=== PATIENT | male | born 1950 | race Caucasian/White ===

== ENCOUNTER 2017-11-06 20:14 | Emergency (ER) | payer OTHER ==
[~2017-11-06] VITALS: Ht 177.8 cm; Wt 75.0 kg
[~2017-11-06 20:14] MED LIST: BACL20TA PO; CLON.5 PO; CLON1TAB PO; GABA800T PO
[2017-11-06 20:31] VITALS: BP 130/77; PULSE 94; RESP 16; TEMP 98.6; O2SAT 99
--- NOTE | 2017-11-06 21:38 | PD ---
HPI Chief Complaint: Alcohol/Drug Intoxication Time Seen by Provider: 21:35 Travel History International Travel<30 days: No Contact w/Intl Traveler<30days: No Traveled to known affect area: No History of Present Illness HPI Patient 67-year-old male presents emergency department intoxicated under the Novemberi[place] act for evaluation. [place] around him, he was unable to walk and so he was [place] acted and brought here. Patient only complains of chronic right shoulder pain because he has his shoulder. He states he is "in a lot of pain". Denies any injury today, states he did not think he had that much and drink. Mostly he is muttering nonsense at this time but when he focuses he can answer questions. 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 HALDOL (Allergy, Severe, Anaphylaxis, 04/01/16) MISCELLANEOUS (SEE TEXT) (Ingr Allergy) (Allergy, Severe, Y, 05/30/03) FLU SHOTS REACTION UNKNOWN NKA (Allergy, Unknown, 05/31/03) Reported Meds & Prescriptions Reported Meds & Active Scripts Active Active Prescriptions or Reported Medications Unobtainable Review of Systems Except as stated in HPI: all other systems reviewed are Neg Physical Exam Narrative GENERAL: Well-developed, well-nourished, covered in sand. SKIN: Focused skin assessment warm/dry. Covered in sand, no rash nor wound seen on his person. HEAD: Atraumatic. Normocephalic. EYES: Pupils equal and round. No scleral icterus. No injection or drainage. ENT: No nasal bleeding or discharge. Mucous membranes pink and moist. NECK: Trachea midline. No JVD. CARDIOVASCULAR: Regular rate and rhythm. No murmur appreciated. RESPIRATORY: No accessory muscle use. Clear to auscultation. Breath sounds equal bilaterally. GASTROINTESTINAL: Abdomen soft, non-tender, nondistended. Hepatic and splenic margins not palpable. MUSCULOSKELETAL: No obvious deformities. No clubbing. No cyanosis. No edema. Extremities are atraumatic, no tenderness on CT or L-spine, NEUROLOGICAL: Awake and alert. No obvious cranial nerve deficits. Motor grossly within normal limits. Normal speech. PSYCHIATRIC: Appropriate mood and affect; insight and judgment normal. Data Data Last Documented VS Vital Signs Date Time Temp Pulse Resp B/P (MAP) Pulse Ox O2 Delivery O2 Flow Rate FiO2 11/06/17 20:31 98.6 94 16 130/77 (94) 99 MDM Medical Decision Making Medical Screen Exam Complete: Yes Emergency Medical Condition: Yes Differential Diagnosis Alcohol intoxication, substance abuse, alcoholism, traumatic injury highly unlikely Narrative Course Patient room to the emergency department, significantly intoxicated on arrival, he has no medical complaints to warrant workup at this time. Will be allowed to sleep it off in the emergency department until such time as she is clinically sober by provider reassessment. He was discussed with the remaining provider in the emergency department at 01 100 when I left at the end of my day. Diagnosis Primary Impression: Alcohol intoxication Scripts Unable to Obtain Active Prescriptions or Reported Meds Ralph Hurtado MD Nov 06, 2017 21:37
== END 2017-11-07 04:30 | disposition home or self-care (01) ==
LOC: NEDAMB 20:14 → NEPD 11-07 04:30
DX: F10.129 Alcohol abuse with intoxication, unspecified (principal); M25.511 Pain in right shoulder; I10 Essential (primary) hypertension; Z72.0 Tobacco use
CPT/HCPCS: 99282

== ENCOUNTER 2017-11-12 13:51 | Inpatient (IN) | payer OTHER ==
[~2017-11-12] VITALS: Ht 188 cm; Wt 70.8 kg
[2017-11-12 14:16] VITALS: BP 153/90; PULSE 98; RESP 18; TEMP 97.8; O2SAT 99
[2017-11-12] MEDS ORDERED: NICOTINE 21 MG/24 HR PATCH T-DERMAL ONE (16:15)
[2017-11-12 16:54] LABS: AUTOMATED NEUTROPHIL # 7.7 TH/MM3 (1.8-7.7); BASOPHIL # 0.1 TH/MM3 (0-0.2); BASOPHIL % 0.6 % (0.0-2.0); EOSINOPHIL # 0.3 TH/MM3 (0-0.4); EOSINOPHIL % 2.9 % (0.0-4.0); HEMATOCRIT 37.3 % (39.0-51.0); LYMPH % 13.9 % (9.0-44.0); LYMPHOCYTE # 1.4 TH/MM3 (1.0-4.8); MEAN CELL VOLUME 94.1 FL (80.0-100.0); MEAN CORPUSCULAR HEMOGLOBIN 32.9 PG (27.0-34.0); MEAN CORPUSCULAR HGB CONC 34.9 % (32.0-36.0); MEAN PLATELET VOLUME 7.2 FL (7.0-11.0); MONO % 6.1 % (0.0-8.0); MONOCYTE # 0.6 TH/MM3 (0-0.9); NEUT % 76.5 % (16.0-70.0); PLATELET COUNT 329 TH/MM3 (150-450); RED BLOOD COUNT 3.97 MIL/MM3 (4.50-5.90); RED CELL DISTRIBUTION WIDTH 12.8 % (11.6-17.2); WHITE BLOOD COUNT 10.1 TH/MM3 (4.0-11.0)
[2017-11-12] MEDS ORDERED: FOLI1TAB6 (17:01)
[2017-11-12] MEDS ORDERED: CYAN1TAB24 (17:01)
[2017-11-12] MEDS ORDERED: SPIRCAP INH (17:01)
[2017-11-12] MEDS ORDERED: GABA400C5 PO (17:01)
[2017-11-12] MEDS ORDERED: BACL10TA PO (17:01)
[2017-11-12] MEDS ORDERED: CLON1 PO (17:01)
[2017-11-12 17:15] LABS: ALBUMIN 3.6 GM/DL (3.4-5.0); ALT (GPT) 37 U/L (12-78); AST (GOT) 23 U/L (15-37); BLOOD UREA NITROGEN 16 MG/DL (7-18); CALCIUM 8.6 MG/DL (8.5-10.1); CHLORIDE 106 MEQ/L (98-107); GLOMERULAR FILTRATION RATE 67 ML/MIN (>89); GLUCOSE,RANDOM 168 MG/DL (74-106); SODIUM (NA) 140 MEQ/L (136-145)
[2017-11-12] MEDS ORDERED: LORazepam 2 MG TAB PO ONE (17:15)
[2017-11-12] MEDS ORDERED: OLANZapine 10 MG TAB PO ONE (17:15)
[2017-11-12 17:17] LABS: ALKALINE PHOSPHATASE 92 U/L (45-117); TOTAL BILIRUBIN ADULT 0.7 MG/DL (0.2-1.0)
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
[2017-11-12 18:52] VITALS: BP 104/62; PULSE 79; RESP 18; O2SAT 97
[2017-11-12] MEDS ORDERED: MAGNESIUM HYDROXIDE SUSP 30 ML CUP PO PRN (19:15)
[2017-11-12] MEDS ORDERED: ALUMINUM/MAGNESIUM/SIMETH 30 ML CUP PO PRN (19:15)
[2017-11-12] MEDS ORDERED: LORazepam 2 MG/ML VIAL IM PRN ×4 (20:15)
[2017-11-12 20:39] VITALS: BP 157/91; PULSE 68; RESP 18; TEMP 97.1; O2SAT 99
[2017-11-13 06:00] VITALS: BP 149/82; PULSE 85; RESP 16; TEMP 98.1; O2SAT 99
[2017-11-13 08:25] LABS: BICARBONATE 29.4 MEQ/L (21.0-32.0); BLOOD UREA NITROGEN 13 MG/DL (7-18); CHLORIDE 107 MEQ/L (98-107); CREATININE 0.97 MG/DL (0.60-1.30); GLOMERULAR FILTRATION RATE 78 ML/MIN (>89); GLUCOSE,RANDOM 105 MG/DL (74-106); SODIUM (NA) 142 MEQ/L (136-145)
[2017-11-13 08:26] LABS: CHOLESTEROL 93 MG/DL (120-200); TRIGLYCERIDES 52 MG/DL (42-150)
[2017-11-13] MEDS: NICOTINE 21 MG/24 HR PATCH T-DERMAL SCH ×2 (08:48→12:17)
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
[2017-11-13 08:51] LABS: HDL CHOLESTEROL 51.4 MG/DL (40.0-60.0); LDL CHOLESTEROL 31 MG/DL (0-99)
[2017-11-13] MEDS: REMOVE OLD PATCH T-DERMAL SCH (08:51)
[2017-11-13 16:44] VITALS: BP 148/81; PULSE 67; RESP 18; TEMP 97.1; O2SAT 99
[2017-11-13 16:51] LABS: HEMOGLOBIN A1C 4.6 % (4.3-6.0)
[2017-11-13] MEDS: GABAPENTIN 400 MG CAP PO SCH (17:49)
--- NOTE | 2017-11-13 20:17 | EKG ---
Date Performed: 11/13/2017 Time Performed: 08:57:58 PTAGE: 67 years EKG: Sinus rhythm WITH SINUS ARRHYTHMIA SEPTAL MYOCARDIAL INFARCTION , OF INDETERMINATE AGE. When compared to previous tracing, the patient is back in sinus Rhythm. ABNORMAL ECG PREVIOUS TRACING : 10/26/2002 10.15 DOCTOR: Delfina Torres Interpretating Date/Time 11/13/2017 20:17:22
[2017-11-13] MEDS: BACLOFEN 10 MG TAB PO SCH (20:34)
[2017-11-14] MEDS: diphenhydrAMINE HCL 50 MG CAP PO PRN ×2 (01:01→20:14)
[2017-11-14] MEDS: LORazepam 2 MG/ML VIAL IM PRN (04:25)
[2017-11-14 05:58] VITALS: BP 106/62; PULSE 60; RESP 16; TEMP 98.2; O2SAT 98
[2017-11-14 06:06] VITALS: BP 149/73; PULSE 76; RESP 18; TEMP 96.9; O2SAT 100
[2017-11-14] MEDS: TIOTROPIUM BROMIDE 18 MCG INH INH SCH (08:33)
[2017-11-14] MEDS: BACLOFEN 10 MG TAB PO SCH ×2 (08:34→18:00)
[2017-11-14] MEDS: CHOLECALCIFEROL (VIT D3) 1000 UNIT TAB PO SCH (08:34)
[2017-11-14] MEDS: THIAMINE HCL 100 MG TAB PO SCH (08:34)
[2017-11-14] MEDS: GABAPENTIN 400 MG CAP PO SCH ×3 (08:34→18:31)
[2017-11-14] MEDS: NICOTINE 21 MG/24 HR PATCH T-DERMAL SCH (08:34)
[2017-11-14] MEDS: FOLIC ACID 1 MG TAB PO SCH (08:34)
[2017-11-14] MEDS: REMOVE OLD PATCH T-DERMAL SCH (08:35)
--- NOTE | 2017-11-14 09:37 | HHI.PYPN ---
Subjective Chief Complaint: Psychosis Remarks Patient seen and examined with nurse. Chart reviewed. We [facility] but have not received any records at this time. Case discussed with nursing staff. Nurse reports that the patient complained of having a seizure overnight. He is also noted to be easily irritated. Nursing notes patient has skin tears on arms. Case discussed in treatment team. Counselor reports that he has spoken with the patient's sister who notes that the patient is usually high functioning. On my examination today, the patient continues to exhibit garbled, rambling speech. He does tell me that he had a "grand mal seizure last night." I do not see this documented anywhere in nursing notes. He remains irritable and disorganized. Says that he normally takes lithium and Klonopin in addition to current regimen. No side effects from current medications. Requesting bowel regimen. I endeavored to reach out the patient's son/healthcare surrogate Lenny Faye at [phone] to discuss medication changes. I left a generic voicemail requesting a call back. Review of Systems ROS Limitations: Psychotic, Poor Historian Except as stated in HPI: all other systems reviewed are Neg Mental Status Examination Appearance: Disheveled Consciousness: Alert Orientation: Person, Place, Date/Time Motor Activity: Other (no signs of withdrawal noted. No motor abnormalities noted.) Speech: Speech impediment Language: Other (rambling) Fund of Knowledge: Adequate Attention and Concentration: Easily Distracted Memory: Unremarkable (Difficult to assess) Mood: Irritable Affect: Irritable Thought Process & Associations: Disorganized Thought Content: Delusional Hallucination Type: Other (internally preoccupied) Delusion Type: Paranoid Suicidal Ideation: No (unreliable contract for safety) Suicidal Plan: No Suicidal Intention: No Homicidal Ideation: No (unreliable to contract for safety) Homicidal Plan: No Homicidal Intention: No Insight: Poor Judgment: Poor Results Labs Test 11/13/17 18:30 Urine Opiates Screen NEG Urine Barbiturates Screen NEG Urine Amphetamines Screen NEG Urine Benzodiazepines Screen NEG Urine Cocaine Screen NEG Urine Cannabinoids Screen POS Labs reviewed. Free T4 within normal limits. Vitals/IOs Vital Signs Date Time Temp Pulse Resp B/P (MAP) Pulse Ox O2 Delivery O2 Flow Rate FiO2 11/14/17 06:06 96.9 76 18 149/73 (98) 100 11/12/17 18:52 Room Air Assessment & Plan Problem List: (1) Other psychotic disorder not due to a substance or known physiological condition ICD Codes: F28 - Other psychotic disorder not due to a substance or known physiological condition (2) Cannabis abuse ICD Codes: F12.10 - Cannabis abuse, uncomplicated Assessment & Plan Continue gabapentin as ordered. Continue CIWA with Ativan to cover for any benzodiazepine withdrawal. I do think the patient would benefit from an antipsychotic, possibly one with mood stabilizing properties, and I would ask the weekend rounding physician to consider initiating such an agent. I am less sure about resuming lithium as the patient does have a decreased GFR and also TSH abnormality, although free T4 is within normal limits. Consult neurology for reported seizure. EEG and seizure precautions. Consult wound care. Bowel regimen. Continue to monitor on the inpatient unit. Continue other medications and care as ordered. Justification for Cont. Inpt. Impairment in reality construction. Risk for decompensation in less restrictive environment. Discharge Planning Pending psychiatric stabilization. Elian Goode MD Nov 14, 2017 09:37
[2017-11-14] MEDS ORDERED: BISACODYL EC 5 MG TABEC PO PRN (09:45)
[2017-11-14] MEDS: DOCUSATE SODIUM 100 MG CAP PO SCH ×2 (10:46→20:14)
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
--- NOTE | 2017-11-14 15:02 | MB ---
cc: JEREMY VALDEZ M.D. DATE OF CONSULTATION: 11/14/2017 REASON FOR CONSULTATION: Sukhdeep Faye he is 67-year-old seen in neurological consultation. He is in the psychiatric unit under a [facility]. Consult was called as the patient has told the staff that he had a seizure last night. Nobody witnessed the seizure as far as I can gather. I spoke to the RN and we went in the room and examined the patient. He says he was moving his head and arms and he remembers the seizure and when I asked him how long it lasted he has had 4 hours. There was no suggestions of incontinence or any tongue injury. It is very difficult to gather more history on him. He was admitted a couple of days ago and through [facility] when he was apparently shooting a gun in the air and had some argument with the police. He does have a psychiatric history and a history of PTSD. He admits seizures in the past from agent orange intoxication when he was in the war. Appears that he lives alone and handles his medications. He MEDICATIONS: Reportedly takes of baclofen clonazepam 1 mg twice a day, Gabapentin 400 mg three times a day Spiriva B12. SOCIAL HISTORY: He does not drink. He does not drive. PHYSICAL EXAMINATION: Exam showed the patient to be vague nonspecific with a difficult to comprehend the speech. He this appears to be his baseline. He is oriented and provided some basic information accurately, knows his medications. He ambulates independently. He was able to walk on toes and has some difficulty walking on heels. Hygiene seems to be poor. Reflexes were present but diminished at the elbows and knees, trace or absent at the ankles. Plantar responses were flexor. LABORATORY FINDINGS: Serum WBC 10.1, hemoglobin 13.0, platelet 329. Chemistry is mostly unremarkable. <<3:18>> level 532. TSH low basic chemistry is normal except that on admission glucose was 168 and yesterday 105. Toxicology was positive for cannabinoids. ASSESSMENT Self-reported for grand mal seizure last evening, lasting for hours. Evidently this is not compatible with a true grand mal seizure considering the entire situation. Very vague history of seen in the past which he described as being related to agent orange. It was very difficult to list any more reliable history. He has an EEG pending. Unless the EEG is showing some significant epileptiform discharges, I would not recommend any of other seizure on assessment for the time being. Continue with gabapentin 400 mg three times a day which has anticonvulsant properties and continue the psychiatric care. Evidently if we document the seizure while he is in the hospital then we will need to be called back to reassess the situation. Thank you for asking us to assist in his care. MD ADELAIDE Hernandez/pamela /10:59 AM /2:25 PM
[2017-11-14] MEDS ORDERED: LITHIUM PO (16:12)
[2017-11-14] MEDS ORDERED: TERA2CAP3 PO (16:12)
[2017-11-14] MEDS ORDERED: MELO15TA20 PO (16:12)
[2017-11-14] MEDS ORDERED: FLUT50SP EACH NARE (16:12)
[2017-11-14] MEDS ORDERED: ASPI81CH7 CHEW (16:12)
[2017-11-14] MEDS ORDERED: CLON1TAB PO (16:12)
[2017-11-14] MEDS ORDERED: SPIRCAP INH (16:12)
[2017-11-14] MEDS ORDERED: GABA400C5 PO (16:12)
[2017-11-14] MEDS ORDERED: BACL10TA PO (16:12)
--- NOTE | 2017-11-14 17:40 | PD.WCN.NOT ---
Wound Consult Description: Received consult for wound management of skin tears to Bilateral arms from Doctor Rupa Communicated with: EDILSON [facility] psych unit Recommendation: 1.Please cleanse skin tears to BUE with wound cleanser and pat dry. 2.Apply non stick dressing over open wounds to LUE and secure with rolled gauze and tape. Change dressing every 3 days or PRN if saturated or dislodged. 3. Apply Xeroform just over open wounds to R elbow and cover with dry 4x4 gauze secured with rolled gauze, tape and stockinette. Change every other day or PRN if saturated or dislodged. Additional Information: Patient seen on 2700 psych unit for wound management of skin tears to bilateral arms. Removed bordered gauze in place to BUE to reveal two open skion tears to L forearm and two open skin tears to R elbow. Wounds appear shallow and partial thickness with no active drainage from L forearm and minimal serous drainage from R elbow wounds that is without odor. All open wounds were cleansed with wound cleanser. Applied non stick dressing (telfa) over open skin tears to L forearm. Secured dressing with rolled gauze and tape. Applied single layer Xeroform gauze just over open skin tears on R elbow and covered with dry 4x4 gauze secured with rolled gauze tape and additionally secured with stockinette. Teetee Mejia [facility] Nov 14, 2017 17:40
[2017-11-14 18:16] VITALS: BP 162/76; PULSE 73; RESP 19; TEMP 97.3; O2SAT 100
[2017-11-14] MEDS: FLUTICASONE PROPIONATE 50 MCG/ACT 16 GM NASAL SPRAY EACH NARE SCH (20:25)
[2017-11-14] MEDS: TERAZOSIN HCL 1 MG CAP PO SCH (20:26)
[2017-11-14] MEDS: LORazepam 1 MG TAB PO PRN (20:43)
[2017-11-14] MEDS: ACETAMINOPHEN 325 MG TAB PO PRN (20:47)
--- NOTE | 2017-11-14 21:18 | MG ---
cc: JEREMY MUÑOZ MD Lab No: Date: 11/14/17 Age: 67 Sex: M Race: REFERRING PHYSICIAN Dr. Greenberg An EEG was obtained on this 67-year-old patient with a history of seizures. The patient is awake and asleep. This EEG shows a mixture of awake and asleep recording. There is beta activity diffusely during sleep. There are theta and some delta rhythms also during sleep. The background appears to be reactive when the patient awakens briefly. Later on, there are deeper stages of sleep and photic stimulation disclosed some awakening. INTERPRETATION Probably normal predominantly asleep EEG for the patient's age. No epileptiform features present. Jeremy Muñoz MD [facility] /8:25 PM /9:11 PM
[2017-11-15 06:09] VITALS: BP 164/79; PULSE 80; RESP 16; TEMP 97.9; O2SAT 100
[2017-11-15] MEDS: MELOXICAM 15 MG TAB PO SCH (08:13)
[2017-11-15] MEDS: FOLIC ACID 1 MG TAB PO SCH (08:13)
[2017-11-15] MEDS: CHOLECALCIFEROL (VIT D3) 1000 UNIT TAB PO SCH (08:13)
[2017-11-15] MEDS: THIAMINE HCL 100 MG TAB PO SCH (08:13)
[2017-11-15] MEDS: ASPIRIN 81 MG CHEW TAB CHEW SCH (08:13)
[2017-11-15] MEDS: GABAPENTIN 400 MG CAP PO SCH ×3 (08:13→17:48)
[2017-11-15] MEDS: DOCUSATE SODIUM 100 MG CAP PO SCH ×2 (08:14→21:00)
[2017-11-15] MEDS: TIOTROPIUM BROMIDE 18 MCG INH INH SCH (08:14)
[2017-11-15] MEDS: NICOTINE 21 MG/24 HR PATCH T-DERMAL SCH (08:14)
[2017-11-15] MEDS: REMOVE OLD PATCH T-DERMAL SCH (08:16)
[2017-11-15] MEDS: BACLOFEN 10 MG TAB PO SCH ×3 (08:44→17:48)
--- NOTE | 2017-11-15 13:38 | HHI.PYPN ---
Subjective Chief Complaint: Psychosis Remarks Pt seen and discussed with staff. He has been bizarre and disorganized on the unit and frequently makes delusional statements that people are out to get him. He has been cooperative with medications. He is irritable but has been participating in unit activities. Mental Status Examination Appearance: Disheveled Consciousness: Alert Orientation: Person, Place, Date/Time Motor Activity: Other (no signs of withdrawal noted. No motor abnormalities noted.) Speech: Speech impediment Language: Other (rambling) Fund of Knowledge: Adequate Attention and Concentration: Easily Distracted Memory: Unremarkable (Difficult to assess) Mood: Irritable Affect: Irritable Thought Process & Associations: Disorganized Thought Content: Delusional Hallucination Type: Other (internally preoccupied) Delusion Type: Paranoid Suicidal Ideation: No (unreliable contract for safety) Suicidal Plan: No Suicidal Intention: No Homicidal Ideation: No (unreliable to contract for safety) Homicidal Plan: No Homicidal Intention: No Insight: Poor Judgment: Poor Results Vitals/IOs Vital Signs Date Time Temp Pulse Resp B/P (MAP) Pulse Ox O2 Delivery O2 Flow Rate FiO2 11/15/17 06:09 97.9 80 16 164/79 (107) 100 11/12/17 18:52 Room Air Assessment & Plan Problem List: (1) Other psychotic disorder not due to a substance or known physiological condition ICD Codes: F28 - Other psychotic disorder not due to a substance or known physiological condition (2) Cannabis abuse ICD Codes: F12.10 - Cannabis abuse, uncomplicated Assessment & Plan continue current tx plan. Estimated LOS: days Justification for Cont. Inpt. psychosis Carmen Sarah MD Nov 15, 2017 13:38
[2017-11-15 18:09] VITALS: BP 166/77; PULSE 84; RESP 19; TEMP 97.8; O2SAT 84
[2017-11-15] MEDS: TERAZOSIN HCL 1 MG CAP PO SCH (21:00)
[2017-11-15] MEDS: FLUTICASONE PROPIONATE 50 MCG/ACT 16 GM NASAL SPRAY EACH NARE SCH (21:00)
[2017-11-16] MEDS: diphenhydrAMINE HCL 50 MG CAP PO PRN ×2 (02:00→20:32)
[2017-11-16] MEDS: LORazepam 1 MG TAB PO PRN (03:09)
[2017-11-16 06:16] VITALS: BP 143/93; PULSE 97; RESP 18; TEMP 98.7; O2SAT 99
[2017-11-16] MEDS: CHOLECALCIFEROL (VIT D3) 1000 UNIT TAB PO SCH (08:13)
[2017-11-16] MEDS: THIAMINE HCL 100 MG TAB PO SCH (08:13)
[2017-11-16] MEDS: FOLIC ACID 1 MG TAB PO SCH (08:13)
[2017-11-16] MEDS: GABAPENTIN 400 MG CAP PO SCH ×3 (08:13→18:00)
[2017-11-16] MEDS: BACLOFEN 10 MG TAB PO SCH ×3 (08:13→18:00)
[2017-11-16] MEDS: TIOTROPIUM BROMIDE 18 MCG INH INH SCH (08:14)
[2017-11-16] MEDS: MELOXICAM 15 MG TAB PO SCH (08:14)
[2017-11-16] MEDS: ASPIRIN 81 MG CHEW TAB CHEW SCH (08:14)
[2017-11-16] MEDS: REMOVE OLD PATCH T-DERMAL SCH (08:25)
[2017-11-16] MEDS: NICOTINE 21 MG/24 HR PATCH T-DERMAL SCH (08:25)
--- NOTE | 2017-11-16 10:39 | HHI.PYPN ---
Subjective Chief Complaint: Psychosis Remarks Pt seen and discussed with staff. He has been compliant with medications. No alcohol withdrawal symptoms. He became angry with peer but was able to be redirected. He participated in a few unit activities. Mental Status Examination Appearance: Disheveled Consciousness: Alert Orientation: Person, Place, Date/Time Motor Activity: Other (no signs of withdrawal noted. No motor abnormalities noted.) Speech: Speech impediment Language: Other (rambling) Fund of Knowledge: Adequate Attention and Concentration: Easily Distracted Memory: Unremarkable (Difficult to assess) Mood: Irritable Affect: Irritable Thought Process & Associations: Disorganized Thought Content: Delusional Hallucination Type: Other (internally preoccupied) Delusion Type: Paranoid Suicidal Ideation: No (unreliable contract for safety) Suicidal Plan: No Suicidal Intention: No Homicidal Ideation: No (unreliable to contract for safety) Homicidal Plan: No Homicidal Intention: No Insight: Poor Judgment: Poor Results Vitals/IOs Vital Signs Date Time Temp Pulse Resp B/P (MAP) Pulse Ox O2 Delivery O2 Flow Rate FiO2 11/16/17 06:16 98.7 97 18 143/93 (110) 99 11/12/17 18:52 Room Air Assessment & Plan Problem List: (1) Other psychotic disorder not due to a substance or known physiological condition ICD Codes: F28 - Other psychotic disorder not due to a substance or known physiological condition (2) Cannabis abuse ICD Codes: F12.10 - Cannabis abuse, uncomplicated Assessment & Plan Continue current tx plan. Estimated LOS: days Justification for Cont. Inpt. psychosis Carmen Sarah MD Nov 16, 2017 10:39
--- NOTE | 2017-11-16 12:32 | PD.CONS ---
HPI Service 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 Patient was [place] [facility] by police after apparently he was shooting at the air [place] his property. Patient has a history of PTSD and per records bipolar disorder. Patient states that he has not drank alcohol or any IV drug abuse but he does have a history of alcohol abuse in the past. Apparently patient had to be tased by police secondary to patient being erratic. The patient is quite psychotic on examination. History is limited because of patient's mental status. No other medical issues. No signs of infection. Patient states compliance with medications but unclear. No urinary or bowel movement issues. Review of Systems ROS Limitations: Clinical Condition, Psychotic Except as stated in HPI: all other systems reviewed are Neg Past Family Social History Allergies: Coded Allergies: haloperidol (Unverified Allergy, Severe, Twitching, 11/06/17) REACTION NOT GIVEN Uncoded Allergies: FLU SHOTS,? HALDOL (Allergy, Severe, Anaphylaxis, 04/01/16) MISCELLANEOUS (SEE TEXT) (Ingr Allergy) (Allergy, Severe, Y, 05/30/03) FLU SHOTS REACTION UNKNOWN NKA (Allergy, Unknown, 05/31/03) Past Medical History psychosis Past Surgical History umbilical hernia repair right knee surgery Family History Says father doesn't know medical problems Says mother healthy at more than 100 years Social History EtOH 8 beers daily Marijuana occasional Tobacco use 1 PPD Physical Exam Vital Signs Vital Signs Date Time Temp Pulse Resp B/P (MAP) Pulse Ox O2 Delivery O2 Flow Rate FiO2 11/16/17 06:16 98.7 97 18 143/93 (110) 99 11/15/17 18:09 97.8 84 19 166/77 (106) 84 Physical Exam GENERAL: This is a well-nourished, well-developed patient, in no apparent distress. SKIN: No rashes, ecchymoses or lesions. Cool and dry. HEAD: Atraumatic. Normocephalic. No temporal or scalp tenderness. EYES: Pupils equal round and reactive. Extraocular motions intact. No scleral icterus. No injection or drainage. ENT: Nose without bleeding, purulent drainage or septal hematoma. Throat without erythema, tonsillar hypertrophy or exudate. Uvula midline. Airway patent. NECK: Trachea midline. No JVD or lymphadenopathy. Supple, nontender, no meningeal signs. CARDIOVASCULAR: Regular rate and rhythm without murmurs, gallops, or rubs. RESPIRATORY: Clear to auscultation. Breath sounds equal bilaterally. No wheezes , rales, or rhonchi. GASTROINTESTINAL: Abdomen soft, non-tender, nondistended. No hepato-splenomegaly , or palpable masses. No guarding. MUSCULOSKELETAL: Extremities without clubbing, cyanosis, or edema. No joint tenderness, effusion, or edema noted. No calf tenderness. Negative Homans sign bilaterally. NEUROLOGICAL: Awake and alert. Cranial nerves grossly intact. Motor and sensory grossly within normal limits. Ambulates without any problems. Normal speech. Psychotic. Tremors of his head. Result Diagram: 11/12/17 1640 11/13/17 0746 Assessment and Plan Assessment and Plan Psychosis management per psych Diarrhea: check for C diff, stool studies, add lactinex Continue home meds as appropriate DVT ppx ambulating Discussed Condition With patient, nurse Laecy Antonio MD Nov 16, 2017 12:32
[2017-11-16 13:26] LABS: AUTOMATED NEUTROPHIL # 4.2 TH/MM3 (1.8-7.7); BASOPHIL % 0.6 % (0.0-2.0); EOSINOPHIL # 0.2 TH/MM3 (0-0.4); EOSINOPHIL % 3.1 % (0.0-4.0); HEMATOCRIT 38.1 % (39.0-51.0); HEMOGLOBIN 13.2 GM/DL (13.0-17.0); LYMPH % 24.8 % (9.0-44.0); LYMPHOCYTE # 1.7 TH/MM3 (1.0-4.8); MEAN CELL VOLUME 94.8 FL (80.0-100.0); MEAN CORPUSCULAR HGB CONC 34.8 % (32.0-36.0); MEAN PLATELET VOLUME 7.4 FL (7.0-11.0); MONO % 8.6 % (0.0-8.0); MONOCYTE # 0.6 TH/MM3 (0-0.9); NEUT % 62.9 % (16.0-70.0); PLATELET COUNT 282 TH/MM3 (150-450); RED BLOOD COUNT 4.02 MIL/MM3 (4.50-5.90); RED CELL DISTRIBUTION WIDTH 13.4 % (11.6-17.2); WHITE BLOOD COUNT 6.7 TH/MM3 (4.0-11.0)
[2017-11-16 13:42] LABS: BICARBONATE 34.3 MEQ/L (21.0-32.0); CALCIUM 9.6 MG/DL (8.5-10.1); CREATININE 1.26 MG/DL (0.60-1.30)
[2017-11-16 16:30] VITALS: BP 119/72; PULSE 92; RESP 18; TEMP 98; O2SAT 99
[2017-11-16] MEDS: FLUTICASONE PROPIONATE 50 MCG/ACT 16 GM NASAL SPRAY EACH NARE SCH (20:31)
[2017-11-16] MEDS: TERAZOSIN HCL 1 MG CAP PO SCH (20:32)
[2017-11-17] MEDS: LORazepam 1 MG TAB PO PRN ×3 (00:12→20:47)
[2017-11-17 06:14] VITALS: BP 155/74; PULSE 90; RESP 16; TEMP 97.3; O2SAT 97
[2017-11-17] MEDS: THIAMINE HCL 100 MG TAB PO SCH (09:00)
[2017-11-17] MEDS: TIOTROPIUM BROMIDE 18 MCG INH INH SCH (09:00)
[2017-11-17] MEDS: REMOVE OLD PATCH T-DERMAL SCH (09:00)
[2017-11-17] MEDS: ASPIRIN 81 MG CHEW TAB CHEW SCH (09:19)
[2017-11-17] MEDS: GABAPENTIN 400 MG CAP PO SCH ×3 (09:19→17:54)
[2017-11-17] MEDS: FOLIC ACID 1 MG TAB PO SCH (09:20)
[2017-11-17] MEDS: NICOTINE 21 MG/24 HR PATCH T-DERMAL SCH (09:20)
[2017-11-17] MEDS: CHOLECALCIFEROL (VIT D3) 1000 UNIT TAB PO SCH (09:20)
[2017-11-17] MEDS: MELOXICAM 15 MG TAB PO SCH (09:20)
[2017-11-17] MEDS: BACLOFEN 10 MG TAB PO SCH ×3 (09:20→17:54)
--- NOTE | 2017-11-17 11:53 | HHI.PYPN ---
Subjective Chief Complaint: Psychosis Remarks Patient seen and examined with nurse. Chart reviewed. Case discussed with nursing staff. On my exam, patient is very irritable. He becomes particularly agitated when discussing medications, yelling out and swinging his arms in a threatening manner. Thought process is disorganized. Denies side effects from medications. No physical complaints. Again endeavored to reach son for med consents. Left VM requesting a call back. Review of Systems ROS Limitations: Psychotic, Poor Historian Except as stated in HPI: all other systems reviewed are Neg Mental Status Examination Appearance: Disheveled Consciousness: Alert Orientation: Person, Place, Date/Time Motor Activity: Other (no abnormal motor movements noted. No signs of any withdrawal noted.) Speech: Speech impediment Language: Other (rambling) Fund of Knowledge: Adequate Attention and Concentration: Easily Distracted Memory: Unremarkable (Difficult to assess) Mood: Angry, Irritable Affect: Irritable Thought Process & Associations: Disorganized Thought Content: Delusional Hallucination Type: Other (remains internally stimulated) Delusion Type: Paranoid Suicidal Ideation: No (unreliable contract for safety) Suicidal Plan: No Suicidal Intention: No Homicidal Ideation: No (unreliable to contract for safety) Homicidal Plan: No Homicidal Intention: No Insight: Poor Judgment: Poor Results Labs Test 11/16/17 13:00 White Blood Count 6.7 TH/MM3 Red Blood Count 4.02 MIL/MM3 Hemoglobin 13.2 GM/DL Hematocrit 38.1 % Mean Corpuscular Volume 94.8 FL Mean Corpuscular Hemoglobin 33.0 PG Mean Corpuscular Hemoglobin Concent 34.8 % Red Cell Distribution Width 13.4 % Platelet Count 282 TH/MM3 Mean Platelet Volume 7.4 FL Neutrophils (%) (Auto) 62.9 % Lymphocytes (%) (Auto) 24.8 % Monocytes (%) (Auto) 8.6 % Eosinophils (%) (Auto) 3.1 % Basophils (%) (Auto) 0.6 % Neutrophils # (Auto) 4.2 TH/MM3 Lymphocytes # (Auto) 1.7 TH/MM3 Monocytes # (Auto) 0.6 TH/MM3 Eosinophils # (Auto) 0.2 TH/MM3 Basophils # (Auto) 0.0 TH/MM3 CBC Comment DIFF FINAL Differential Comment Blood Urea Nitrogen 21 MG/DL Creatinine 1.26 MG/DL Random Glucose 93 MG/DL Calcium Level 9.6 MG/DL Sodium Level 141 MEQ/L Potassium Level 4.1 MEQ/L Chloride Level 104 MEQ/L Carbon Dioxide Level 34.3 MEQ/L Anion Gap 3 MEQ/L Estimat Glomerular Filtration Rate 57 ML/MIN Labs reviewed. GFR 57 noted. Extended urine toxicology pending still. Vitals/IOs Vital Signs Date Time Temp Pulse Resp B/P (MAP) Pulse Ox O2 Delivery O2 Flow Rate FiO2 11/17/17 06:14 97.3 90 16 155/74 (101) 97 Assessment & Plan Problem List: (1) Other psychotic disorder not due to a substance or known physiological condition ICD Codes: F28 - Other psychotic disorder not due to a substance or known physiological condition (2) Cannabis abuse ICD Codes: F12.10 - Cannabis abuse, uncomplicated Assessment & Plan Patient would benefit from antipsychotic. QTc wnl. When son calls back, we will discuss pharmacotherapeutic options. Encourage fluids and check BMP in the morning. Hospitalist input noted and appreciated. Continue to monitor on high acuity unit. Continue other medications and care as ordered. Justification for Cont. Inpt. Impairment in reality construction. Medication changes anticipated. High risk for decompensation in less restrictive environment. Discharge Planning Pending psychiatric stabilization Request HC Surrog/Guard Advoc?: Yes Elian Goode MD Nov 17, 2017 11:53
[2017-11-17] MEDS ORDERED: LITH300T PO (12:18)
[2017-11-17 17:45] VITALS: BP 125/72; PULSE 100; RESP 16; TEMP 98.7; O2SAT 98
[2017-11-17] MEDS: ARIPiprazole 15 MG TAB PO SCH (17:54)
[2017-11-17] MEDS: TERAZOSIN HCL 1 MG CAP PO SCH (20:47)
[2017-11-17] MEDS: FLUTICASONE PROPIONATE 50 MCG/ACT 16 GM NASAL SPRAY EACH NARE SCH (21:00)
[2017-11-18 06:05] VITALS: BP 157/67; PULSE 77; RESP 16; TEMP 98.1; O2SAT 99
[2017-11-18 07:05] LABS: BICARBONATE 31.2 MEQ/L (21.0-32.0); CREATININE 1.18 MG/DL (0.60-1.30)
[2017-11-18] MEDS: REMOVE OLD PATCH T-DERMAL SCH (09:00)
[2017-11-18] MEDS: ARIPiprazole 15 MG TAB PO SCH (09:16)
[2017-11-18] MEDS: THIAMINE HCL 100 MG TAB PO SCH (09:16)
[2017-11-18] MEDS: BACLOFEN 10 MG TAB PO SCH ×3 (09:16→17:51)
[2017-11-18] MEDS: TIOTROPIUM BROMIDE 18 MCG INH INH SCH (09:16)
[2017-11-18] MEDS: ASPIRIN 81 MG CHEW TAB CHEW SCH (09:16)
[2017-11-18] MEDS: FOLIC ACID 1 MG TAB PO SCH (09:17)
[2017-11-18] MEDS: GABAPENTIN 400 MG CAP PO SCH ×3 (09:17→17:51)
[2017-11-18] MEDS: CHOLECALCIFEROL (VIT D3) 1000 UNIT TAB PO SCH (09:17)
[2017-11-18] MEDS: MELOXICAM 15 MG TAB PO SCH (09:17)
[2017-11-18] MEDS: NICOTINE 21 MG/24 HR PATCH T-DERMAL SCH (09:18)
--- NOTE | 2017-11-18 09:32 | HHI.PYPN ---
Subjective Chief Complaint: Psychosis Remarks Patient seen and examined with nurse. Chart reviewed. Case discussed with nursing staff who notes patient was arguing with himself in the shower. Case discussed in treatment team. Recreation therapist notes that the patient is unable to tolerate groups. On my examination today, the patient's speech is a little clearer and his thought process somewhat more linear. He is less irritable. He continues to make tangential comments at times, for example asking me about my "id and iliac being out of alignment." No side effects from medications. No physical complaints. Review of Systems ROS Limitations: Psychotic, Poor Historian Except as stated in HPI: all other systems reviewed are Neg Mental Status Examination Appearance: Disheveled (grooming somewhat improved today) Consciousness: Alert Orientation: Person, Place, Date/Time Motor Activity: Other (tongue darting movements persist but the patient is edentulous. No other motor abnormalities noted.) Speech: Speech impediment Language: Other (remains rambling but a little more coherent today) Fund of Knowledge: Adequate Attention and Concentration: Easily Distracted Memory: Unremarkable (Difficult to assess) Mood: Other (considerably less irritable today) Affect: Euthymic Thought Process & Associations: Tangential Thought Content: Delusional Hallucination Type: Other (remains internally stimulated) Delusion Type: Paranoid Suicidal Ideation: No Homicidal Ideation: No Insight: Poor Judgment: Poor Results Labs Test 11/18/17 06:21 Blood Urea Nitrogen 23 MG/DL Creatinine 1.18 MG/DL Random Glucose 119 MG/DL Calcium Level 10.0 MG/DL Sodium Level 141 MEQ/L Potassium Level 4.3 MEQ/L Chloride Level 106 MEQ/L Carbon Dioxide Level 31.2 MEQ/L Anion Gap 4 MEQ/L Estimat Glomerular Filtration Rate 62 ML/MIN Labs reviewed. GFR improved versus previous reading and within range going back to 2014. Vitals/IOs Vital Signs Date Time Temp Pulse Resp B/P (MAP) Pulse Ox O2 Delivery O2 Flow Rate FiO2 11/18/17 06:05 98.1 77 16 157/67 (97) 99 Assessment & Plan Problem List: (1) Other psychotic disorder not due to a substance or known physiological condition ICD Codes: F28 - Other psychotic disorder not due to a substance or known physiological condition (2) Cannabis abuse ICD Codes: F12.10 - Cannabis abuse, uncomplicated Assessment & Plan Titrate Abilify to 20 mg daily to target psychotic symptoms. To consider long- acting injectable Abilify. Continue to monitor on an inpatient unit. Continue other medications and care as ordered. Justification for Cont. Inpt. Medication changes. Impairment in reality construction. Risk for decompensation in less restrictive environment. Discharge Planning Pending psychiatric stabilization. Request HC Surrog/Guard Advoc?: Yes Elian Goode MD Nov 18, 2017 09:32
[2017-11-18] MEDS: LORazepam 1 MG TAB PO PRN ×2 (13:12→20:22)
--- NOTE | 2017-11-18 17:25 | HHI.PR ---
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 Patient was [place] acted by police after apparently he was shooting [place] the air [place]. Patient has a history of PTSD and per records bipolar disorder. Patient states that he has not drank alcohol or any IV drug abuse but he does have a history of alcohol abuse in the past. Apparently patient had to be tased by police secondary to patient being erratic. The patient is quite psychotic on examination. History is limited because of patient's mental status. No other medical issues. No signs of infection. Patient states compliance with medications but unclear. No urinary or bowel movement issues. 11-18 WAS REFUSING TREATMENT PRIOR IN ADMISSION PATIENT IS NOW TAKING HIS MEDICATIONS DW PATIENT AND RN Objective Vitals Vital Signs Date Time Temp Pulse Resp B/P (MAP) Pulse Ox O2 Delivery O2 Flow Rate FiO2 11/18/17 06:05 98.1 77 16 157/67 (97) 99 11/17/17 17:45 98.7 100 16 125/72 (89) 98 Result Diagram: 11/16/17 1300 11/18/17 0621 Other Results Laboratory Tests Test 11/16/17 13:00 11/18/17 06:21 White Blood Count 6.7 TH/MM3 Red Blood Count 4.02 MIL/MM3 Hemoglobin 13.2 GM/DL Hematocrit 38.1 % Mean Corpuscular Volume 94.8 FL Mean Corpuscular Hemoglobin 33.0 PG Mean Corpuscular Hemoglobin Concent 34.8 % Red Cell Distribution Width 13.4 % Platelet Count 282 TH/MM3 Mean Platelet Volume 7.4 FL Neutrophils (%) (Auto) 62.9 % Lymphocytes (%) (Auto) 24.8 % Monocytes (%) (Auto) 8.6 % Eosinophils (%) (Auto) 3.1 % Basophils (%) (Auto) 0.6 % Neutrophils # (Auto) 4.2 TH/MM3 Lymphocytes # (Auto) 1.7 TH/MM3 Monocytes # (Auto) 0.6 TH/MM3 Eosinophils # (Auto) 0.2 TH/MM3 Basophils # (Auto) 0.0 TH/MM3 CBC Comment DIFF FINAL Differential Comment Blood Urea Nitrogen 21 MG/DL 23 MG/DL Creatinine 1.26 MG/DL 1.18 MG/DL Random Glucose 93 MG/DL 119 MG/DL Calcium Level 9.6 MG/DL 10.0 MG/DL Sodium Level 141 MEQ/L 141 MEQ/L Potassium Level 4.1 MEQ/L 4.3 MEQ/L Chloride Level 104 MEQ/L 106 MEQ/L Carbon Dioxide Level 34.3 MEQ/L 31.2 MEQ/L Anion Gap 3 MEQ/L 4 MEQ/L Estimat Glomerular Filtration Rate 57 ML/MIN 62 ML/MIN Objective Remarks GENERAL: AWAKE AND ALERT TALKATIVE AND COOPERATIVE NOW SKIN: Warm and dry. HEAD: Atraumatic. Normocephalic. EYES: Pupils equal and round. No scleral icterus. No injection or drainage. ENT: No nasal bleeding or discharge. Mucous membranes pink and moist. NECK: Trachea midline. No JVD. CARDIOVASCULAR: Regular rate and rhythm. S1,S2 NO S3 OR S4 RESPIRATORY: No accessory muscle use. Clear to auscultation. Breath sounds equal bilaterally. GASTROINTESTINAL: Abdomen soft, non-tender, nondistended. Hepatic and splenic margins not palpable. MUSCULOSKELETAL: Extremities without clubbing, cyanosis, or edema. No obvious deformities. NEUROLOGICAL: Awake and alert. No obvious cranial nerve deficits. Motor grossly within normal limits. Five out of 5 muscle strength in the arms and legs. Normal speech. PSYCHIATRIC: INAppropriate mood and affect; insight and judgment ABnormal. Medications and IVs Current Medications Nicotine (Habitrol 21 Mg Patch.24 Hr) 1 patch ONCE ONCE T-DERMAL Last administered on 11/12/17at 16:25; Start 11/12/17 at 16:15; Stop 11/12/17 at 16:16 ; Status DC Lorazepam (Ativan) 2 mg NOW ONCE PO Last administered on 11/12/17at 17:15; Start 11/12/17 at 17:15; Stop 11/12/17 at 17:16; Status DC Olanzapine (ZyPREXA) 10 mg NOW ONCE PO Last administered on 11/12/17at 17:15; Start 11/12/17 at 17:15; Stop 11/12/17 at 17:16; Status DC Acetaminophen (Tylenol) 650 mg Q4H PRN PO Pain 1-5 or Temp >101F Last administered on 11/14/17at 20:47; Start 11/12/17 at 19:15 Magnesium Hydroxide (Milk Of Magnesia Liq) 30 ml DAILY PRN PO CONSTIPATION; Start 11/12/17 at 19:15 Al Hydrox/Mg Hydrox/Simethicone (Mag-Al Plus Susp Liq) 30 ml Q6H PRN PO DYSPEPSIA; Start 11/12/17 at 19:15 Nicotine (Habitrol 21 Mg Patch.24 Hr) 1 patch DAILY T-DERMAL Last administered on 11/18/17at 09:18; Start 11/13/17 at 09:00 Miscellaneous Information 1 DAILY T-DERMAL Last administered on 11/18/17at 09:00 ; Start 11/13/17 at 09:00 Lorazepam (Ativan) 1 mg Q4H PRN PO CIWA 8-10 Last administered on 11/17/17at 20: 47; Start 11/12/17 at 20:15 Lorazepam (Ativan Inj) 1 mg Q4H PRN IM CIWA 8-10; Start 11/12/17 at 20:15 Lorazepam (Ativan) 2 mg Q2H PRN PO CIWA 11-14; Start 11/12/17 at 20:15 Lorazepam (Ativan Inj) 2 mg Q2H PRN IM CIWA 11-14; Start 11/12/17 at 20:15 Lorazepam (Ativan Inj) 2 mg Q1H PRN IM CIWA 15-20; Start 11/12/17 at 20:15 Lorazepam (Ativan Inj) 2 mg Q15M PRN IM CIWA > 20; Start 11/12/17 at 20:15 Thiamine HCl (Vitamin B1) 100 mg DAILY PO Last administered on 11/18/17at 09:16 ; Start 11/14/17 at 09:00 Folic Acid (Folate) 1 mg DAILY PO Last administered on 11/18/17at 09:17; Start 11/14/17 at 09:00 Cholecalciferol (Vitamin D3) 1,000 units DAILY PO Last administered on 09:17; Start 11/14/17 at 09:00 Baclofen (Lioresal) 10 mg BID PO Last administered on 11/14/17at 08:34; Start at 21:00; Stop 11/14/17 at 17:15; Status DC Gabapentin (Neurontin) 400 mg TID PO Last administered on 11/18/17at 13:12; Start 11/13/17 at 18:00 Tiotropium [place] (Spiriva Inh) 18 mcg DAILY INH Last administered on 09:16; Start 11/14/17 at 09:00 Lorazepam (Ativan) 1 mg Q6H PRN PO ANXIETY Last administered on 11/18/17 13:12 ; Start 11/13/17 at 16:30 Lorazepam (Ativan Inj) 1 mg Q6H PRN IM ANXIETY Last administered on 11/14/17 04:25; Start 11/13/17 at 16:30 Diphenhydramine HCl (Benadryl) 50 mg HS PRN PO INSOMNIA Last administered on 20:32; Start 11/13/17 at 16:30 Docusate Sodium (Colace) 100 mg BID PO Last administered on 11/14/17 20:14; Start 11/14/17 at 11:00; Status Future Hold Bisacodyl (Dulcolax Ec) 10 mg DAILY PRN PO NO BM IN 24 HOURS Last administered on 11/14/17 10:46; Start 11/14/17 at 09:45; Status Future Hold Aspirin (Aspirin Chew) 81 mg DAILY CHEW Last administered on 11/18/17 09:16; Start 11/15/17 at 09:00 Fluticasone Propionate (Flonase Ron Spr) 1 spray HS EACH NARE Last administered on 11/17/17 21:00; Start 11/14/17 at 21:00 Meloxicam (Mobic) 15 mg DAILY PO Last administered on 11/18/17 09:17; Start at 09:00 Terazosin HCl (Hytrin) 2 mg HS PO Last administered on 11/17/17 20:47; Start 11/14/17 at 21:00 Baclofen (Lioresal) 10 mg TID PO Last administered on 11/18/17 13:12; Start at 18:00 Aripiprazole (Abilify) 15 mg DAILY PO Last administered on 11/18/17 09:16; Start 11/17/17 at 18:00; Stop 11/18/17 at 12:39; Status DC Aripiprazole (Abilify) 20 mg DAILY PO ; Start 11/19/17 at 09:00 A/P Assessment and Plan Assessment and Plan Psychosis management per psych Diarrhea: check for C diff, stool studies, add lactinex - NO STOOL SENT YET HYPERTENSION HOME MEDS COPD CONTINUE HOME MEDS HX OF AGENT ORANGE EXPOSURE Continue home meds as appropriate DVT ppx ambulating Discharge Planning PSYCHIATRIC CLEARANCE Aston Ramirez DO Nov 18, 2017 17:25
[2017-11-18 18:41] VITALS: BP 117/56; PULSE 75; RESP 18; TEMP 96.7; O2SAT 99
[2017-11-18] MEDS: TERAZOSIN HCL 1 MG CAP PO SCH (20:22)
[2017-11-18] MEDS: FLUTICASONE PROPIONATE 50 MCG/ACT 16 GM NASAL SPRAY EACH NARE SCH (20:22)
[2017-11-19 06:01] VITALS: BP 155/70; PULSE 78; RESP 18; TEMP 98.3; O2SAT 99
[2017-11-19] MEDS: REMOVE OLD PATCH T-DERMAL SCH (09:00)
[2017-11-19] MEDS: BACLOFEN 10 MG TAB PO SCH ×3 (09:00→18:00)
--- NOTE | 2017-11-19 09:04 | HHI.PYPN ---
Subjective Chief Complaint: Psychosis Remarks Patient seen and examined. Chart reviewed. Case discussed with nursing staff. Patient noted by nursing to remain fairly labile although this is improving with antipsychotic treatment. On my examination today, the patient is somewhat discharge focused. He remains fairly irascible. He is still somewhat paranoid. Denies side effects from medications. No physical complaints. Review of Systems ROS Limitations: Psychotic, Poor Historian Except as stated in HPI: all other systems reviewed are Neg Mental Status Examination Appearance: Other (remains a little disheveled) Consciousness: Alert Orientation: Person, Place, Date/Time Motor Activity: Other (no new abnormal motor movements noted.) Speech: Speech impediment Language: Other (again a little more coherent) Fund of Knowledge: Adequate Attention and Concentration: Easily Distracted Memory: Unremarkable (Difficult to assess) Mood: Irritable Affect: Irritable Thought Process & Associations: Other (circumstantial, at times tangential) Thought Content: Delusional Hallucination Type: None Delusion Type: Paranoid Suicidal Ideation: No Homicidal Ideation: No Insight: Poor Judgment: Poor Results Labs Labs reviewed. No new labs. Vitals/IOs Vital Signs Date Time Temp Pulse Resp B/P (MAP) Pulse Ox O2 Delivery O2 Flow Rate FiO2 11/19/17 06:01 98.3 78 18 155/70 (98) 99 Assessment & Plan Problem List: (1) Other psychotic disorder not due to a substance or known physiological condition ICD Codes: F28 - Other psychotic disorder not due to a substance or known physiological condition (2) Cannabis abuse ICD Codes: F12.10 - Cannabis abuse, uncomplicated Assessment & Plan Continue Abilify as ordered with plans for further titration to effect. Patient does seem to be deriving some benefit from this agent. Hospitalist input noted and appreciated. Continue other medications and care as ordered. Justification for Cont. Inpt. Medication changes. Impairment in reality construction. Risk for decompensation in less restrictive environment. Discharge Planning Pending psychiatric stabilization. Request HC Surrog/Guard Advoc?: Yes Elian Goode MD Nov 19, 2017 09:03
[2017-11-19] MEDS: THIAMINE HCL 100 MG TAB PO SCH (09:15)
[2017-11-19] MEDS: TIOTROPIUM BROMIDE 18 MCG INH INH SCH (09:15)
[2017-11-19] MEDS: ASPIRIN 81 MG CHEW TAB CHEW SCH (09:15)
[2017-11-19] MEDS: MELOXICAM 15 MG TAB PO SCH (09:15)
[2017-11-19] MEDS: CHOLECALCIFEROL (VIT D3) 1000 UNIT TAB PO SCH (09:15)
[2017-11-19] MEDS: GABAPENTIN 400 MG CAP PO SCH ×3 (09:15→18:31)
[2017-11-19] MEDS: FOLIC ACID 1 MG TAB PO SCH (09:16)
[2017-11-19] MEDS: NICOTINE 21 MG/24 HR PATCH T-DERMAL SCH (09:16)
--- NOTE | 2017-11-19 14:07 | HHI.PR ---
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 Patient was [place] acted by police after apparently he was [place]. Patient has a history of PTSD and per records bipolar disorder. Patient states that he has not drank alcohol or any IV drug abuse but he does have a history of alcohol abuse in the past. Apparently patient had to be tased by police secondary to patient being erratic. The patient is quite psychotic on examination. History is limited because of patient's mental status. No other medical issues. No signs of infection. Patient states compliance with medications but unclear. No urinary or bowel movement issues. 11-18 WAS REFUSING TREATMENT PRIOR IN ADMISSION PATIENT IS NOW TAKING HIS MEDICATIONS DW PATIENT AND RN 11-19 patient is now being much more cooperative is taking his medications. Discussed with patient and RN Objective Vitals Vital Signs Date Time Temp Pulse Resp B/P (MAP) Pulse Ox O2 Delivery O2 Flow Rate FiO2 11/19/17 06:01 98.3 78 18 155/70 (98) 99 11/18/17 18:41 96.7 75 18 117/56 (76) 99 Result Diagram: 11/16/17 1300 11/18/17 0621 Other Results Laboratory Tests Test 11/18/17 06:21 Blood Urea Nitrogen 23 MG/DL Creatinine 1.18 MG/DL Random Glucose 119 MG/DL Calcium Level 10.0 MG/DL Sodium Level 141 MEQ/L Potassium Level 4.3 MEQ/L Chloride Level 106 MEQ/L Carbon Dioxide Level 31.2 MEQ/L Anion Gap 4 MEQ/L Estimat Glomerular Filtration Rate 62 ML/MIN Objective Remarks GENERAL: AWAKE AND ALERT TALKATIVE AND COOPERATIVE NOW SKIN: Warm and dry. HEAD: Atraumatic. Normocephalic. EYES: Pupils equal and round. No scleral icterus. No injection or drainage. ENT: No nasal bleeding or discharge. Mucous membranes pink and moist. NECK: Trachea midline. No JVD. CARDIOVASCULAR: Regular rate and rhythm. S1,S2 NO S3 OR S4 RESPIRATORY: No accessory muscle use. Clear to auscultation. Breath sounds equal bilaterally. GASTROINTESTINAL: Abdomen soft, non-tender, nondistended. Hepatic and splenic margins not palpable. MUSCULOSKELETAL: Extremities without clubbing, cyanosis, or edema. No obvious deformities. NEUROLOGICAL: Awake and alert. No obvious cranial nerve deficits. Motor grossly within normal limits. Five out of 5 muscle strength in the arms and legs. Normal speech. PSYCHIATRIC: INAppropriate mood and affect; insight and judgment ABnormal. Procedures None Medications and IVs Current Medications Nicotine (Habitrol 21 Mg Patch.24 Hr) 1 patch ONCE ONCE T-DERMAL Last administered on 11/12/17 16:25; Start 11/12/17 at 16:15; Stop 11/12/17 at 16:16 ; Status DC Lorazepam (Ativan) 2 mg NOW ONCE PO Last administered on 11/12/17at 17:15; Start 11/12/17 at 17:15; Stop 11/12/17 at 17:16; Status DC Olanzapine (ZyPREXA) 10 mg NOW ONCE PO Last administered on 11/12/17 17:15; Start 11/12/17 at 17:15; Stop 11/12/17 at 17:16; Status DC Acetaminophen (Tylenol) 650 mg Q4H PRN PO Pain 1-5 or Temp >101F Last administered on 11/14/17at 20:47; Start 11/12/17 at 19:15 Magnesium Hydroxide (Milk Of Magnesia Liq) 30 ml DAILY PRN PO CONSTIPATION; Start 11/12/17 at 19:15 Al Hydrox/Mg Hydrox/Simethicone (Mag-Al Plus Susp Liq) 30 ml Q6H PRN PO DYSPEPSIA; Start 11/12/17 at 19:15 Nicotine (Habitrol 21 Mg Patch.24 Hr) 1 patch DAILY T-DERMAL Last administered on 11/19/17 09:16; Start 11/13/17 at 09:00 Miscellaneous Information 1 DAILY T-DERMAL Last administered on 11/19/17at 09:00 ; Start 11/13/17 at 09:00 Lorazepam (Ativan) 1 mg Q4H PRN PO CIWA 8-10 Last administered on 11/17/17at 20: 47; Start 11/12/17 at 20:15 Lorazepam (Ativan Inj) 1 mg Q4H PRN IM CIWA 8-10; Start 11/12/17 at 20:15 Lorazepam (Ativan) 2 mg Q2H PRN PO CIWA 11-14; Start 11/12/17 at 20:15 Lorazepam (Ativan Inj) 2 mg Q2H PRN IM CIWA 11-14; Start 11/12/17 at 20:15 Lorazepam (Ativan Inj) 2 mg Q1H PRN IM CIWA 15-20; Start 11/12/17 at 20:15 Lorazepam (Ativan Inj) 2 mg Q15M PRN IM CIWA > 20; Start 11/12/17 at 20:15 Thiamine HCl (Vitamin B1) 100 mg DAILY PO Last administered on 11/19/17 09:15 ; Start 11/14/17 at 09:00 Folic Acid (Folate) 1 mg DAILY PO Last administered on 11/19/17 09:16; Start 11/14/17 at 09:00 Cholecalciferol (Vitamin D3) 1,000 units DAILY PO Last administered on 09:15; Start 11/14/17 at 09:00 Baclofen (Lioresal) 10 mg BID PO Last administered on 11/14/17 08:34; Start at 21:00; Stop 11/14/17 at 17:15; Status DC Gabapentin (Neurontin) 400 mg TID PO Last administered on 11/19/17 13:26; Start 11/13/17 at 18:00 Tiotropium [place] (Spiriva Inh) 18 mcg DAILY INH Last administered on 09:15; Start 11/14/17 at 09:00 Lorazepam (Ativan) 1 mg Q6H PRN PO ANXIETY Last administered on 11/18/17 20:22 ; Start 11/13/17 at 16:30 Lorazepam (Ativan Inj) 1 mg Q6H PRN IM ANXIETY Last administered on 11/14/17at 04:25; Start 11/13/17 at 16:30 Diphenhydramine HCl (Benadryl) 50 mg HS PRN PO INSOMNIA Last administered on 20:32; Start 11/13/17 at 16:30 Docusate Sodium (Colace) 100 mg BID PO Last administered on 11/14/17 20:14; Start 11/14/17 at 11:00; Status Future Hold Bisacodyl (Dulcolax Ec) 10 mg DAILY PRN PO NO BM IN 24 HOURS Last administered on 11/14/17at 10:46; Start 11/14/17 at 09:45; Status Future Hold Aspirin (Aspirin Chew) 81 mg DAILY CHEW Last administered on 11/19/17 09:15; Start 11/15/17 at 09:00 Fluticasone Propionate (Flonase Ron Spr) 1 spray HS EACH NARE Last administered on 11/18/17at 20:22; Start 11/14/17 at 21:00 Meloxicam (Mobic) 15 mg DAILY PO Last administered on 11/19/17 09:15; Start at 09:00 Terazosin HCl (Hytrin) 2 mg HS PO Last administered on 11/18/17 20:22; Start 11/14/17 at 21:00 Baclofen (Lioresal) 10 mg TID PO Last administered on 11/19/17 09:00; Start at 18:00 Aripiprazole (Abilify) 15 mg DAILY PO Last administered on 11/18/17 09:16; Start 11/17/17 at 18:00; Stop 11/18/17 at 12:39; Status DC Aripiprazole (Abilify) 20 mg DAILY PO Last administered on 11/19/17at 09:15; Start 11/19/17 at 09:00 Lactobacillus Acidophilus (Lactinex) 1 tab Q12HR PO ; Start 11/19/17 at 21:00 A/P Assessment and Plan Assessment and Plan Psychosis management per psych Diarrhea: check for C diff, stool studies, add lactinex - NO STOOL SENT YET-- therefore no results HYPERTENSION HOME MEDS COPD CONTINUE HOME MEDS HX OF AGENT ORANGE EXPOSURE Continue home meds as appropriate DVT ppx ambulating Discharge Planning PSYCHIATRIC CLEARANCE Aston Ramirez DO Nov 19, 2017 14:07
[2017-11-19 16:00] VITALS: BP 155/75; PULSE 80; RESP 18; TEMP 98.1; O2SAT 99
[2017-11-19] MEDS: LACTOBACILLUS ACIDOPHILUS TAB PO SCH (20:06)
[2017-11-19] MEDS: FLUTICASONE PROPIONATE 50 MCG/ACT 16 GM NASAL SPRAY EACH NARE SCH (20:06)
[2017-11-19] MEDS: TERAZOSIN HCL 1 MG CAP PO SCH (20:06)
[2017-11-20 05:55] VITALS: BP 143/79; PULSE 84; RESP 16; TEMP 96.5; O2SAT 97
[2017-11-20] MEDS: THIAMINE HCL 100 MG TAB PO SCH (08:19)
[2017-11-20] MEDS: ASPIRIN 81 MG CHEW TAB CHEW SCH (08:19)
[2017-11-20] MEDS: CHOLECALCIFEROL (VIT D3) 1000 UNIT TAB PO SCH (08:19)
[2017-11-20] MEDS: GABAPENTIN 400 MG CAP PO SCH ×3 (08:19→17:52)
[2017-11-20] MEDS: NICOTINE 21 MG/24 HR PATCH T-DERMAL SCH (08:20)
[2017-11-20] MEDS: REMOVE OLD PATCH T-DERMAL SCH (09:00)
[2017-11-20] MEDS: BACLOFEN 10 MG TAB PO SCH ×3 (09:00→17:52)
[2017-11-20] MEDS: TIOTROPIUM BROMIDE 18 MCG INH INH SCH (09:00)
[2017-11-20] MEDS: FOLIC ACID 1 MG TAB PO SCH (09:00)
[2017-11-20] MEDS: LACTOBACILLUS ACIDOPHILUS TAB PO SCH ×2 (09:00→21:15)
[2017-11-20] MEDS: MELOXICAM 15 MG TAB PO SCH (09:00)
--- NOTE | 2017-11-20 10:36 | HHI.PYPN ---
Subjective Chief Complaint: Psychosis Remarks Patient seen and case discussed with nursing staff. Chart reviewed. For me today, patient remains irascible and paranoid. Patient's daughter, Dea, present in [place] today notes this is the most decompensated she has ever seen her father and notes that he has been leaving ammunition in neighbors' mailboxes. She notes he has issues with medication non-adherence. Patient continues to have garbled speech as before, but it has a distinctly moist, gargling quality that is new today. He also has head turning in addition to previous tongue darting. No other side effects from medications. No physical complaints. Review of Systems ROS Limitations: Psychotic, Poor Historian Except as stated in HPI: all other systems reviewed are Neg Mental Status Examination Appearance: Disheveled Consciousness: Alert Orientation: Person, Place Motor Activity: Other (see motor findings as above.) Speech: Speech impediment, Other (gargling, moist quality) Language: Other (rambling, somewhat difficult to follow) Fund of Knowledge: Adequate Attention and Concentration: Easily Distracted Memory: Impaired (difficult to assess) Mood: Irritable Affect: Irritable Thought Process & Associations: Other (circumstantial, at times tangential) Thought Content: Delusional Hallucination Type: None Delusion Type: Paranoid Suicidal Ideation: No (no SI voiced, unreliable contract for safety) Homicidal Ideation: No (no HI voiced, unreliable to contract for safety) Insight: Poor Judgment: Poor Results Labs Labs reviewed. No new labs. 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 Obtain swallow eval. Add Cogentin 1mg BID. Keep Abilify dose at 20mg daily for now, but if motor symptoms are improved tomorrow, to consider further titration of this agent to target psychosis. Continue to monitor on high acuity unit. Continue other medications and care as ordered. Patient's case was presented to the [place] court, and the patient was retained on the unit by the presiding judge with patient's daughter Dea Faye to serve as guardian advocate. The presiding judge additionally entered an order for police to confiscate the patient's firearms, and the civil rights attorney will convey the order to the relevant on enforcement agency. Justification for Cont. Inpt. Impairment in reality construction. Risk for decompensation in less restrictive environment. Discharge Planning Possible placement in structured living environment. Case discussed with counselor. Request HC Surrog/Guard Advoc?: Yes Elian Goode MD Nov 20, 2017 10:36
--- NOTE | 2017-11-20 14:26 | HHI.PR ---
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 Patient was Dudley acted by police after apparently he was shooting at the air [place] his [place]. Patient has a history of PTSD and per records bipolar disorder. Patient states that he has not drank alcohol or any IV drug abuse but he does have a history of alcohol abuse in the past. Apparently patient had to be tased by police secondary to patient being erratic. The patient is quite psychotic on examination. History is limited because of patient's mental status. No other medical issues. No signs of infection. Patient states compliance with medications but unclear. No urinary or bowel movement issues. 11-18 WAS REFUSING TREATMENT PRIOR IN ADMISSION PATIENT IS NOW TAKING HIS MEDICATIONS DW PATIENT AND RN - patient is now being much more cooperative is taking his medications. Discussed with patient and RN 3-1 NO NEW COMPLAINTS TAKING HIS MEDICATIONS DW RN AND PT WILL SIGN OFF REMOVE FROM MY LIST Objective Vitals Vital Signs Date Time Temp Pulse Resp B/P (MAP) Pulse Ox O2 Delivery O2 Flow Rate FiO2 11/20/17 05:55 96.5 84 16 143/79 (100) 97 11/19/17 16:00 98.1 80 18 155/75 (101) 99 Result Diagram: 11/16/17 1300 11/18/17 0621 Other Results Laboratory Tests Test 11/18/17 06:21 Blood Urea Nitrogen 23 MG/DL Creatinine 1.18 MG/DL Random Glucose 119 MG/DL Calcium Level 10.0 MG/DL Sodium Level 141 MEQ/L Potassium Level 4.3 MEQ/L Chloride Level 106 MEQ/L Carbon Dioxide Level 31.2 MEQ/L Anion Gap 4 MEQ/L Estimat Glomerular Filtration Rate 62 ML/MIN Objective Remarks GENERAL: AWAKE AND ALERT TALKATIVE AND COOPERATIVE NOW SKIN: Warm and dry. HEAD: Atraumatic. Normocephalic. EYES: Pupils equal and round. No scleral icterus. No injection or drainage. ENT: No nasal bleeding or discharge. Mucous membranes pink and moist. NECK: Trachea midline. No JVD. CARDIOVASCULAR: Regular rate and rhythm. S1,S2 NO S3 OR S4 RESPIRATORY: No accessory muscle use. Clear to auscultation. Breath sounds equal bilaterally. GASTROINTESTINAL: Abdomen soft, non-tender, nondistended. Hepatic and splenic margins not palpable. MUSCULOSKELETAL: Extremities without clubbing, cyanosis, or edema. No obvious deformities. NEUROLOGICAL: Awake and alert. No obvious cranial nerve deficits. Motor grossly within normal limits. Five out of 5 muscle strength in the arms and legs. Normal speech. PSYCHIATRIC: Appropriate mood and affect; insight and judgment ABnormal. Procedures None Medications and IVs Current Medications Nicotine (Habitrol 21 Mg Patch.24 Hr) 1 patch ONCE ONCE T-DERMAL Last administered on 11/12/17 16:25; Start 11/12/17 at 16:15; Stop 11/12/17 at 16:16 ; Status DC Lorazepam (Ativan) 2 mg NOW ONCE PO Last administered on 11/12/17 17:15; Start 11/12/17 at 17:15; Stop 11/12/17 at 17:16; Status DC Olanzapine (ZyPREXA) 10 mg NOW ONCE PO Last administered on 11/12/17 17:15; Start 11/12/17 at 17:15; Stop 11/12/17 at 17:16; Status DC Acetaminophen (Tylenol) 650 mg Q4H PRN PO Pain 1-5 or Temp >101F Last administered on 11/14/17 20:47; Start 11/12/17 at 19:15 Magnesium Hydroxide (Milk Of Magnesia Liq) 30 ml DAILY PRN PO CONSTIPATION; Start 11/12/17 at 19:15 Al Hydrox/Mg Hydrox/Simethicone (Mag-Al Plus Susp Liq) 30 ml Q6H PRN PO DYSPEPSIA; Start 11/12/17 at 19:15 Nicotine (Habitrol 21 Mg Patch.24 Hr) 1 patch DAILY T-DERMAL Last administered on 11/20/17 08:20; Start 11/13/17 at 09:00 Miscellaneous Information 1 DAILY T-DERMAL Last administered on 11/20/17 09:00 ; Start 11/13/17 at 09:00 Lorazepam (Ativan) 1 mg Q4H PRN PO CIWA 8-10 Last administered on 11/17/17 20: 47; Start 11/12/17 at 20:15 Lorazepam (Ativan Inj) 1 mg Q4H PRN IM CIWA 8-10; Start 11/12/17 at 20:15 Lorazepam (Ativan) 2 mg Q2H PRN PO CIWA 11-14; Start 11/12/17 at 20:15 Lorazepam (Ativan Inj) 2 mg Q2H PRN IM CIWA 11-14; Start 11/12/17 at 20:15 Lorazepam (Ativan Inj) 2 mg Q1H PRN IM CIWA 15-20; Start 11/12/17 at 20:15 Lorazepam (Ativan Inj) 2 mg Q15M PRN IM CIWA > 20; Start 11/12/17 at 20:15 Thiamine HCl (Vitamin B1) 100 mg DAILY PO Last administered on 11/20/17 08:19; Start 11/14/17 at 09:00 Folic Acid (Folate) 1 mg DAILY PO Last administered on 11/20/17 09:00; Start at 09:00 Cholecalciferol (Vitamin D3) 1,000 units DAILY PO Last administered on 08:19; Start 11/14/17 at 09:00 Baclofen (Lioresal) 10 mg BID PO Last administered on 11/14/17 08:34; Start at 21:00; Stop 11/14/17 at 17:15; Status DC Gabapentin (Neurontin) 400 mg TID PO Last administered on 11/20/17 12:43; Start 11/13/17 at 18:00 Tiotropium Sophia (Spiriva Inh) 18 mcg DAILY INH Last administered on 09:00; Start 11/14/17 at 09:00 Lorazepam (Ativan) 1 mg Q6H PRN PO ANXIETY Last administered on 11/18/17 20:22 ; Start 11/13/17 at 16:30 Lorazepam (Ativan Inj) 1 mg Q6H PRN IM ANXIETY Last administered on 11/14/17 04:25; Start 11/13/17 at 16:30 Diphenhydramine HCl (Benadryl) 50 mg HS PRN PO INSOMNIA Last administered on 20:32; Start 11/13/17 at 16:30 Docusate Sodium (Colace) 100 mg BID PO Last administered on 11/14/17 20:14; Start 11/14/17 at 11:00; Status Future Hold Bisacodyl (Dulcolax Ec) 10 mg DAILY PRN PO NO BM IN 24 HOURS Last administered on 2/23/18at 10:46; Start 11/14/17 at 09:45; Status Future Hold Aspirin (Aspirin Chew) 81 mg DAILY CHEW Last administered on 11/20/17 08:19; Start 11/15/17 at 09:00 Fluticasone Propionate (Flonase Ron Spr) 1 spray HS EACH NARE Last administered on 11/19/17 20:06; Start 11/14/17 at 21:00 Meloxicam (Mobic) 15 mg DAILY PO Last administered on 11/20/17 09:00; Start at 09:00 Terazosin HCl (Hytrin) 2 mg HS PO Last administered on 11/19/17at 20:06; Start 11/14/17 at 21:00 Baclofen (Lioresal) 10 mg TID PO Last administered on 11/20/17at 12:43; Start at 18:00 Aripiprazole (Abilify) 15 mg DAILY PO Last administered on 11/18/17at 09:16; Start 11/17/17 at 18:00; Stop 11/18/17 at 12:39; Status DC Aripiprazole (Abilify) 20 mg DAILY PO Last administered on 11/20/17 08:19; Start 11/19/17 at 09:00 Lactobacillus Acidophilus (Lactinex) 1 tab Q12HR PO Last administered on at 09:00; Start 11/19/17 at 21:00 Benztropine Mesylate (Cogentin) 1 mg Q12HR PO ; Start 11/20/17 at 21:00 A/P Assessment and Plan Assessment and Plan Psychosis management per psych Diarrhea: check for C diff, stool studies, add lactinex - NO STOOL SENT YET-- therefore no results--NO MORE DIARRHEA HYPERTENSION HOME MEDS COPD CONTINUE HOME MEDS HX OF AGENT ORANGE EXPOSURE Continue home meds as appropriate DVT ppx ambulating WILL SIGN OFF REMOVE FROM MY LIST Discharge Planning PSYCHIATRIC CLEARANCE Aston Ramirez DO Nov 20, 2017 14:26
[2017-11-20 18:14] VITALS: BP 134/78; PULSE 87; RESP 18; TEMP 96.5; O2SAT 100
[2017-11-20] MEDS: FLUTICASONE PROPIONATE 50 MCG/ACT 16 GM NASAL SPRAY EACH NARE SCH (21:15)
[2017-11-20] MEDS: TERAZOSIN HCL 1 MG CAP PO SCH (21:15)
[2017-11-20] MEDS: BENZTROPINE MESYLATE 1 MG TAB PO SCH (21:15)
[2017-11-21 06:17] VITALS: BP 111/70; PULSE 90; RESP 16; TEMP 97.3; O2SAT 100
[2017-11-21] MEDS: GABAPENTIN 400 MG CAP PO SCH ×3 (08:37→17:38)
[2017-11-21] MEDS: BENZTROPINE MESYLATE 1 MG TAB PO SCH ×2 (08:38→20:22)
[2017-11-21] MEDS: CHOLECALCIFEROL (VIT D3) 1000 UNIT TAB PO SCH (08:38)
[2017-11-21] MEDS: ASPIRIN 81 MG CHEW TAB CHEW SCH (08:38)
[2017-11-21] MEDS: BACLOFEN 10 MG TAB PO SCH ×3 (08:38→17:38)
[2017-11-21] MEDS: FOLIC ACID 1 MG TAB PO SCH (08:38)
[2017-11-21] MEDS: TIOTROPIUM BROMIDE 18 MCG INH INH SCH (08:38)
[2017-11-21] MEDS: MELOXICAM 15 MG TAB PO SCH (08:40)
[2017-11-21] MEDS: THIAMINE HCL 100 MG TAB PO SCH (08:41)
[2017-11-21] MEDS: LACTOBACILLUS ACIDOPHILUS TAB PO SCH ×2 (08:44→21:13)
[2017-11-21] MEDS: NICOTINE 21 MG/24 HR PATCH T-DERMAL SCH (09:00)
[2017-11-21] MEDS: REMOVE OLD PATCH T-DERMAL SCH (09:00)
--- NOTE | 2017-11-21 15:47 | HHI.PYPN ---
Subjective Chief Complaint: Psychosis Remarks Reviewed electronic medical record, labs, discuss case with staff. Follow-up conducted in patient's room with nurse present. Patient found lying awake in his bed. When asked how he slept last night he reports "all right". From that point he launched into a series of requests for multiple pain medications. His speech remains difficult to understand however, to the best of my knowledge for the rest of the interview he continued with his requests for pain medication. He denies being suicidal or homicidal and having auditory or visual hallucinations, however his insight remains poor. Mental Status Examination Appearance: Disheveled Consciousness: Alert Orientation: Person, Place Motor Activity: Other (see motor findings as above.) Speech: Speech impediment, Other (gargling, moist quality) Language: Other (rambling, somewhat difficult to follow) Fund of Knowledge: Adequate Attention and Concentration: Easily Distracted Memory: Impaired (difficult to assess) Mood: Irritable Affect: Irritable, Anxious Thought Process & Associations: Other (circumstantial, at times tangential) Thought Content: Delusional Hallucination Type: None Delusion Type: Paranoid Suicidal Ideation: No (no SI voiced, unreliable contract for safety) Homicidal Ideation: No (no HI voiced, unreliable to contract for safety) Insight: Poor Judgment: Poor Results Vitals/IOs Vital Signs Date Time Temp Pulse Resp B/P (MAP) Pulse Ox O2 Delivery O2 Flow Rate FiO2 11/21/17 06:17 97.3 90 16 111/70 (84) 100 Assessment & Plan Problem List: (1) Other psychotic disorder not due to a substance or known physiological condition ICD Codes: F28 - Other psychotic disorder not due to a substance or known physiological condition (2) Cannabis abuse ICD Codes: F12.10 - Cannabis abuse, uncomplicated Assessment & Plan Estimated LOS: We will continue with treatment plan until psychiatrically stabilized. Patient has had a medical consult, so at this time his medications will not be changed. Justification for Cont. Inpt. Patient is likely to decompensate if move to a lower level of care at this time. Request HC Surrog/Guard Advoc?: Yes Marjorie Song Nov 21, 2017 15:47
[2017-11-21 17:10] VITALS: BP 123/66; PULSE 77; RESP 18; TEMP 97.5; O2SAT 98
[2017-11-21] MEDS: TERAZOSIN HCL 1 MG CAP PO SCH (20:22)
[2017-11-21] MEDS: FLUTICASONE PROPIONATE 50 MCG/ACT 16 GM NASAL SPRAY EACH NARE SCH (20:22)
[2017-11-22 06:16] VITALS: BP 127/70; PULSE 72; RESP 19; TEMP 97.4; O2SAT 96
[2017-11-22] MEDS: TIOTROPIUM BROMIDE 18 MCG INH INH SCH (08:28)
[2017-11-22] MEDS: BENZTROPINE MESYLATE 1 MG TAB PO SCH ×2 (08:28→20:22)
[2017-11-22] MEDS: BACLOFEN 10 MG TAB PO SCH ×3 (08:28→17:34)
[2017-11-22] MEDS: CHOLECALCIFEROL (VIT D3) 1000 UNIT TAB PO SCH (08:28)
[2017-11-22] MEDS: MELOXICAM 15 MG TAB PO SCH (08:29)
[2017-11-22] MEDS: GABAPENTIN 400 MG CAP PO SCH ×3 (08:29→17:34)
[2017-11-22] MEDS: ASPIRIN 81 MG CHEW TAB CHEW SCH (08:29)
[2017-11-22] MEDS: THIAMINE HCL 100 MG TAB PO SCH (08:29)
[2017-11-22] MEDS: NICOTINE 21 MG/24 HR PATCH T-DERMAL SCH (09:00)
[2017-11-22] MEDS: REMOVE OLD PATCH T-DERMAL SCH (09:00)
[2017-11-22] MEDS: FOLIC ACID 1 MG TAB PO SCH (09:00)
[2017-11-22] MEDS: LACTOBACILLUS ACIDOPHILUS TAB PO SCH ×2 (09:00→20:22)
--- NOTE | 2017-11-22 16:13 | HHI.PYPN ---
Subjective Chief Complaint: Psychosis Remarks Patient was seen and case discussed with nursing. Patient's speech is garbled and is difficult to understand. He is irritable and perseverative during the interview. Thought processes tangential. She denies suicidal or homicidal ideation intent or plan Mental Status Examination Appearance: Disheveled Consciousness: Alert Orientation: Person, Place Motor Activity: Other (see motor findings as above.) Speech: Speech impediment, Other (gargling, moist quality) Language: Other (rambling, somewhat difficult to follow) Fund of Knowledge: Adequate Attention and Concentration: Easily Distracted Memory: Impaired (difficult to assess) Mood: Irritable Affect: Irritable, Anxious Thought Process & Associations: Other (circumstantial, at times tangential) Thought Content: Delusional Hallucination Type: None Delusion Type: Paranoid Suicidal Ideation: No (no SI voiced, unreliable contract for safety) Homicidal Ideation: No (no HI voiced, unreliable to contract for safety) Insight: Poor Judgment: Poor Results Vitals/IOs Vital Signs Date Time Temp Pulse Resp B/P (MAP) Pulse Ox O2 Delivery O2 Flow Rate FiO2 11/22/17 06:16 97.4 72 19 127/70 (89) 96 Assessment & Plan Problem List: (1) Other psychotic disorder not due to a substance or known physiological condition ICD Codes: F28 - Other psychotic disorder not due to a substance or known physiological condition (2) Cannabis abuse ICD Codes: F12.10 - Cannabis abuse, uncomplicated Assessment & Plan Continue current treatment plan Justification for Cont. Inpt. Patient will decompensate in a less restrictive setting Request HC Surrog/Guard Advoc?: Yes Bob Gutiérrez DO Nov 22, 2017 16:13
[2017-11-22] MEDS: LORazepam 1 MG TAB PO PRN (17:34)
[2017-11-22] MEDS: FLUTICASONE PROPIONATE 50 MCG/ACT 16 GM NASAL SPRAY EACH NARE SCH (20:22)
[2017-11-22] MEDS: TERAZOSIN HCL 1 MG CAP PO SCH (20:22)
[2017-11-23 03:00] VITALS: BP 150/72; PULSE 86; RESP 20; TEMP 97; O2SAT 98
[2017-11-23 06:17] VITALS: BP 113/61; PULSE 98; RESP 18; O2SAT 99
[2017-11-23] MEDS: THIAMINE HCL 100 MG TAB PO SCH (10:00)
[2017-11-23] MEDS: REMOVE OLD PATCH T-DERMAL SCH (10:00)
[2017-11-23] MEDS: FOLIC ACID 1 MG TAB PO SCH (10:00)
[2017-11-23] MEDS: LACTOBACILLUS ACIDOPHILUS TAB PO SCH ×2 (10:00→20:17)
[2017-11-23] MEDS: NICOTINE 21 MG/24 HR PATCH T-DERMAL SCH (10:00)
[2017-11-23] MEDS: MELOXICAM 15 MG TAB PO SCH (10:00)
[2017-11-23] MEDS: ASPIRIN 81 MG CHEW TAB CHEW SCH (10:00)
[2017-11-23] MEDS: GABAPENTIN 400 MG CAP PO SCH ×3 (10:00→17:53)
[2017-11-23] MEDS: TIOTROPIUM BROMIDE 18 MCG INH INH SCH (10:00)
[2017-11-23] MEDS: CHOLECALCIFEROL (VIT D3) 1000 UNIT TAB PO SCH (10:00)
[2017-11-23] MEDS: BENZTROPINE MESYLATE 1 MG TAB PO SCH ×2 (10:00→20:17)
[2017-11-23] MEDS: BACLOFEN 10 MG TAB PO SCH ×3 (10:00→17:53)
--- NOTE | 2017-11-23 13:16 | HHI.PYPN ---
Subjective Chief Complaint: Psychosis Remarks Patient was seen and case discussed with nursing. Today, patient is markedly more irritable. He is loud, angry, yelling about nonsensical topics. He is complaining to nursing about intermittent right-sided chest pain. Responding to internal stimuli Mental Status Examination Appearance: Disheveled Consciousness: Alert Orientation: Person, Place Motor Activity: Other (see motor findings as above.) Speech: Speech impediment, Other (gargling, moist quality) Language: Other (rambling, somewhat difficult to follow) Fund of Knowledge: Adequate Attention and Concentration: Easily Distracted Memory: Impaired (difficult to assess) Mood: Irritable Affect: Irritable, Anxious Thought Process & Associations: Other (circumstantial, at times tangential) Thought Content: Bizarre thinking, Delusional Hallucination Type: None Delusion Type: Paranoid Suicidal Ideation: No (no SI voiced, unreliable contract for safety) Homicidal Ideation: No (no HI voiced, unreliable to contract for safety) Insight: Poor Judgment: Poor Results Vitals/IOs Vital Signs Date Time Temp Pulse Resp B/P (MAP) Pulse Ox O2 Delivery O2 Flow Rate FiO2 11/23/17 06:17 98 18 113/61 (78) 99 11/23/17 03:00 97.0 Assessment & Plan Problem List: (1) Other psychotic disorder not due to a substance or known physiological condition ICD Codes: F28 - Other psychotic disorder not due to a substance or known physiological condition (2) Cannabis abuse ICD Codes: F12.10 - Cannabis abuse, uncomplicated Assessment & Plan Medical consult and stat EKG Justification for Cont. Inpt. Patient would decompensate in a less restrictive setting Request HC Surrog/Guard Advoc?: Yes Bob Gutiérrez DO Nov 23, 2017 13:16
[2017-11-23 16:30] LABS: TROPONIN I LESS THAN 0.02 NG/ML (0.02-0.05)
[2017-11-23 18:20] VITALS: BP 102/52; PULSE 97; RESP 20; TEMP 97.4; O2SAT 97
[2017-11-23] MEDS: TERAZOSIN HCL 1 MG CAP PO SCH (20:17)
[2017-11-23] MEDS: FLUTICASONE PROPIONATE 50 MCG/ACT 16 GM NASAL SPRAY EACH NARE SCH (20:17)
[2017-11-24] MEDS: FOLIC ACID 1 MG TAB PO SCH (09:00)
[2017-11-24] MEDS: TIOTROPIUM BROMIDE 18 MCG INH INH SCH (09:00)
[2017-11-24] MEDS: MELOXICAM 15 MG TAB PO SCH (09:00)
[2017-11-24] MEDS: GABAPENTIN 400 MG CAP PO SCH ×3 (09:00→18:36)
[2017-11-24] MEDS: NICOTINE 21 MG/24 HR PATCH T-DERMAL SCH (09:00)
[2017-11-24] MEDS: BACLOFEN 10 MG TAB PO SCH ×3 (09:00→18:36)
[2017-11-24] MEDS: REMOVE OLD PATCH T-DERMAL SCH (09:00)
[2017-11-24] MEDS: BENZTROPINE MESYLATE 1 MG TAB PO SCH ×2 (09:00→21:30)
[2017-11-24] MEDS: CHOLECALCIFEROL (VIT D3) 1000 UNIT TAB PO SCH (09:00)
[2017-11-24] MEDS: THIAMINE HCL 100 MG TAB PO SCH (09:00)
[2017-11-24] MEDS: LACTOBACILLUS ACIDOPHILUS TAB PO SCH ×2 (09:00→21:00)
[2017-11-24] MEDS: ASPIRIN 81 MG CHEW TAB CHEW SCH (09:00)
--- NOTE | 2017-11-24 11:52 | HHI.PYPN ---
Subjective Chief Complaint: Psychosis Remarks Patient seen and examined with nurse. Chart reviewed. Case discussed with nursing staff. Patient reportedly complaining of ongoing diarrhea, and I have specifically instructed the nurse to ensure to obtain samples for the C. difficile PCR and other stool studies, and I have reordered these. I have also re-consulted the hospitalist for this issue. Case discussed with counselor who reports that the patient may be accepted at [facility]. Case discussed with speech therapist who is requesting that I order a modified barium swallow, which I have done. On my examination today, the patient presents with a somatic preoccupation. He remains somewhat disorganized but less irritable today. Makes odd statements at times. Some ongoing paranoia. No side effects from medications. Review of Systems ROS Limitations: Psychotic, Poor Historian Except as stated in HPI: all other systems reviewed are Neg Mental Status Examination Appearance: Disheveled Consciousness: Alert Orientation: Person, Place, Date/Time Motor Activity: Other (decreased tongue darting and neck turning movements. No other motor abnormalities noted.) Speech: Speech impediment Language: Other (remains rambling) Fund of Knowledge: Adequate Attention and Concentration: Easily Distracted Memory: Impaired (difficult to assess) Mood: Other (somewhat less irritable today) Affect: Irritable, Anxious Thought Process & Associations: Other (remains tangential) Thought Content: Bizarre thinking Hallucination Type: None Delusion Type: Paranoid Suicidal Ideation: No Homicidal Ideation: No Insight: Poor Judgment: Poor Results Labs Test 11/23/17 15:43 Total Creatine Kinase 39 U/L Troponin I LESS THAN 0.02 NG/ML Labs reviewed. EKG read as sinus tachycardia with QTC of 401 ms, not prolonged.. Vitals/IOs Vital Signs Date Time Temp Pulse Resp B/P (MAP) Pulse Ox O2 Delivery O2 Flow Rate FiO2 11/23/17 18:20 97.4 97 20 102/52 (14) 97 Assessment & Plan Problem List: (1) Other psychotic disorder not due to a substance or known physiological condition ICD Codes: F28 - Other psychotic disorder not due to a substance or known physiological condition (2) Cannabis abuse ICD Codes: F12.10 - Cannabis abuse, uncomplicated Assessment & Plan Titrate Abilify to 25mg daily to target psychotic symptoms. Check stool studies and reconsult the hospitalist for diarrhea. I have ordered a modified barium swallow as requested by the speech therapist. Continue to monitor on the high acuity unit. Continue other medications and care as ordered. Justification for Cont. Inpt. Medication changes. Impairment in reality construction. Risk for decompensation in less restrictive environment. Discharge Planning Pending psychiatric stabilization. Request HC Surrog/Guard Advoc?: Yes Elian Goode MD Nov 24, 2017 11:52
[2017-11-24] MEDS ORDERED: LOPERAMIDE HCL 2 MG CAP PO ONE (14:00)
[2017-11-24] MEDS ORDERED: PILL SPLITTER OTHER PRN (15:15)
--- NOTE | 2017-11-24 15:51 | HHI.PR ---
Subjective Remarks Reconsult for diarrhea. Patient seen and examined. Patient states he's had 10 -15 loose watery stools today. He denies any fever or chills. Denies any chest pain or dyspnea. He denies any nausea, vomiting or abdominal pain. He reports intermittent problems with diarrhea for many years and takes Imodium. He denies any hx of IBS. He denies any blood in the stool. Discussed with nursing staff - patient has had difficulty swallowing and is scheduled for MBS tomorrow. Objective Vitals Vital Signs Date Time Temp Pulse Resp B/P (MAP) Pulse Ox O2 Delivery O2 Flow Rate FiO2 11/23/17 18:20 97.4 97 20 102/52 (47) 97 Objective Remarks GENERAL: Thin, chronically ill appearing male patient in NAD. Awake and alert. Lying in bed. Cooperative. SKIN: Warm and dry. No rash. HEAD: Normocephalic. Atraumatic. EYES: EOMI. No scleral icterus. No injection or drainage. ENT: No nasal bleeding or discharge. Mucous membranes pink and moist. (+) involuntary tongue movements noted. NECK: Trachea midline. CARDIOVASCULAR: Regular rate and rhythm. S1, S2 noted. No murmur appreciated. RESPIRATORY: Nonlabored. Clear to auscultation. Breath sounds equal bilaterally. GASTROINTESTINAL: Abdomen soft, non-tender, nondistended. Hypoactive bowel sounds x4. MUSCULOSKELETAL: No obvious deformities. Extremities without clubbing, cyanosis , or edema. NEUROLOGICAL: Awake and alert. No obvious cranial nerve deficits. Able to move all extremities spontaneously. Involuntary movements noted of the neck and head. No focal neurologic findings appreciated. (+)Speech impediment. PSYCHIATRIC: Appropriate mood and affect; insight and judgment normal. Procedures None Medications and IVs Current Medications Medications (Trade) Dose Ordered Sig/Dat Route Start Time Stop Time Status Last Admin (Tylenol) 650 mg Q4H PRN PO 11/12/17 19:15 11/14/17 20:47 (Milk Of Magnesia Liq) 30 ml DAILY PRN PO 11/12/17 19:15 (Mag-Al Plus Susp Liq) 30 ml Q6H PRN PO 11/12/17 19:15 (Habitrol 21 Mg Patch.24 Hr) 1 patch DAILY T-DERMAL 11/13/17 09:00 11/24/17 09:00 Miscellaneous Information 1 DAILY T-DERMAL 11/13/17 09:00 11/24/17 09:00 (Ativan) 1 mg Q4H PRN PO 11/12/17 20:15 11/22/17 17:34 (Ativan Inj) 1 mg Q4H PRN IM 11/12/17 20:15 (Ativan) 2 mg Q2H PRN PO 11/12/17 20:15 (Ativan Inj) 2 mg Q2H PRN IM 11/12/17 20:15 (Ativan Inj) 2 mg Q1H PRN IM 11/12/17 20:15 (Ativan Inj) 2 mg Q15M PRN IM 11/12/17 20:15 (Vitamin B1) 100 mg DAILY PO 11/14/17 09:00 11/24/17 09:00 (Folate) 1 mg DAILY PO 11/14/17 09:00 11/24/17 09:00 (Vitamin D3) 1,000 units DAILY PO 11/14/17 09:00 11/24/17 09:00 (Neurontin) 400 mg TID PO 11/13/17 18:00 11/24/17 12:58 (Spiriva Inh) 18 mcg DAILY INH 11/14/17 09:00 11/24/17 09:00 (Ativan) 1 mg Q6H PRN PO 11/13/17 16:30 11/18/17 20:22 (Ativan Inj) 1 mg Q6H PRN IM 11/13/17 16:30 11/14/17 04:25 (Benadryl) 50 mg HS PRN PO 11/13/17 16:30 11/16/17 20:32 (Colace) 100 mg BID PO 11/14/17 11:00 Future Hold 11/14/17 20:14 (Dulcolax Ec) 10 mg DAILY PRN PO 11/14/17 09:45 Future Hold 11/14/17 10:46 (Aspirin Chew) 81 mg DAILY CHEW 11/15/17 09:00 11/24/17 09:00 (Flonase Ron Spr) 1 spray HS EACH NARE 11/14/17 21:00 11/23/17 20:17 (Mobic) 15 mg DAILY PO 11/15/17 09:00 11/24/17 09:00 (Hytrin) 2 mg HS PO 11/14/17 21:00 11/23/17 20:17 (Lioresal) 10 mg TID PO 11/14/17 18:00 11/24/17 12:58 (Lactinex) 1 tab Q12HR PO 11/19/17 21:00 11/23/17 20:17 (Cogentin) 1 mg Q12HR PO 11/20/17 21:00 11/24/17 09:00 (Abilify) 25 mg DAILY PO 11/25/17 09:00 (Pill Splitter) 1 ea UNSCH PRN OTHER 11/24/17 15:15 A/P Assessment and Plan Psychosis -management per psychiatric team Diarrhea -C diff and stool studies pending - will follow up on results. Continue to hold Imodium. -Lactinex ordered but patient refusing -continue to hold all laxatives/stool softeners Dysphagia -speech therapy currently following - on puree nectar thick diet -scheduled for MBS tomorrow Hypertension now hypotensive, suspect due to poor oral intake -hold Hytrin -monitor BP and adjust treatment accordingly COPD, not in acute exacerbation -continue on home dose of Spiriva -Duonebs as needed HX of agent orange exposure -continue on home dose of Gabapentin -continue on Baclofen DVT ppx -Patient is ambulating Brittany Malhotra Nov 24, 2017 15:51
[2017-11-24] MEDS ORDERED: RESP: ALBUTEROL 2.5 MG/IPRATROPIUM 0.5 MG NEB (PRN) NEB (16:00)
[2017-11-24 16:46] VITALS: BP 120/80; PULSE 91; RESP 18; TEMP 96.5; O2SAT 100
[2017-11-24 21:30] LABS: AUTOMATED NEUTROPHIL # 3.2 TH/MM3 (1.8-7.7); BASOPHIL % 0.5 % (0.0-2.0); EOSINOPHIL # 0.1 TH/MM3 (0-0.4); EOSINOPHIL % 2.3 % (0.0-4.0); HEMATOCRIT 38.5 % (39.0-51.0); HEMOGLOBIN 13.6 GM/DL (13.0-17.0); LYMPH % 27.8 % (9.0-44.0); LYMPHOCYTE # 1.6 TH/MM3 (1.0-4.8); MEAN CORPUSCULAR HEMOGLOBIN 32.8 PG (27.0-34.0); MEAN CORPUSCULAR HGB CONC 35.2 % (32.0-36.0); MEAN PLATELET VOLUME 7.7 FL (7.0-11.0); MONO % 12.6 % (0.0-8.0); MONOCYTE # 0.7 TH/MM3 (0-0.9); NEUT % 56.8 % (16.0-70.0); PLATELET COUNT 285 TH/MM3 (150-450); RED BLOOD COUNT 4.14 MIL/MM3 (4.50-5.90); RED CELL DISTRIBUTION WIDTH 13.4 % (11.6-17.2); WHITE BLOOD COUNT 5.6 TH/MM3 (4.0-11.0)
[2017-11-24] MEDS: FLUTICASONE PROPIONATE 50 MCG/ACT 16 GM NASAL SPRAY EACH NARE SCH (21:30)
[2017-11-24 21:42] LABS: BICARBONATE 28.4 MEQ/L (21.0-32.0); CALCIUM 9.4 MG/DL (8.5-10.1); CREATININE 1.18 MG/DL (0.60-1.30); MAGNESIUM 2.2 MG/DL (1.5-2.5)
[2017-11-25] MEDS: diphenhydrAMINE HCL 50 MG CAP PO PRN ×2 (01:10→19:33)
[2017-11-25] MEDS: LORazepam 2 MG/ML VIAL IM PRN (02:35)
[2017-11-25 06:21] VITALS: BP 173/74; PULSE 82; RESP 16; TEMP 97.1
[2017-11-25] MEDS: ASPIRIN 81 MG CHEW TAB CHEW SCH (09:00)
[2017-11-25] MEDS: GABAPENTIN 400 MG CAP PO SCH ×3 (09:00→17:37)
[2017-11-25] MEDS: BENZTROPINE MESYLATE 1 MG TAB PO SCH ×2 (09:00→19:34)
[2017-11-25] MEDS: BACLOFEN 10 MG TAB PO SCH ×3 (09:00→17:37)
[2017-11-25] MEDS: TIOTROPIUM BROMIDE 18 MCG INH INH SCH (09:00)
[2017-11-25] MEDS ORDERED: ARIPiprazole 10 MG TAB PO SCH (09:00)
[2017-11-25] MEDS: FOLIC ACID 1 MG TAB PO SCH (09:00)
[2017-11-25] MEDS: REMOVE OLD PATCH T-DERMAL SCH (09:00)
[2017-11-25] MEDS: NICOTINE 21 MG/24 HR PATCH T-DERMAL SCH (09:00)
[2017-11-25] MEDS: CHOLECALCIFEROL (VIT D3) 1000 UNIT TAB PO SCH (09:00)
[2017-11-25] MEDS: THIAMINE HCL 100 MG TAB PO SCH (09:00)
[2017-11-25] MEDS: LACTOBACILLUS ACIDOPHILUS TAB PO SCH ×2 (09:00→19:33)
--- NOTE | 2017-11-25 10:31 | HHI.PYPN ---
Subjective Chief Complaint: Psychosis Remarks Patient seen and examined. Chart reviewed. Case discussed with nursing staff. Patient reportedly angry and agitated this morning; required Ativan IM. Case discussed in treatment team. Counselor reports that he had tried to arrange for placement for the patient, but patient had acted out with [employer]'s representative from facility, scuttling this placement effort. On my examination today, the patient tells me that he is "not too happy camper! I want out of here, romelia beal! Psychology." He is irritable and discharge focused. He is paranoid, noting "I want the fuck out! Someone is trying to kill me!" He cannot say who is trying to kill him. Speech is loud and angry, and patient gets himself more worked up as he talks. No side effects from medications. No physical complaints. Spoke with pt's daughter/GA. We discuss treatment plan and efforts at discharge planning. We discuss med changes and daughter is agreeable to adding Depakote for mood stabilization after discussion of the R/B/A. We discussed patient's current episode of diarrhea. Review of Systems ROS Limitations: Psychotic, Poor Historian Except as stated in HPI: all other systems reviewed are Neg Mental Status Examination Appearance: Disheveled Consciousness: Alert Orientation: Person, Place Motor Activity: Other (no new abnormal motor movements noted) Speech: Speech impediment Language: Other (remains rambling) Fund of Knowledge: Adequate Attention and Concentration: Easily Distracted Memory: Impaired (difficult to assess) Mood: Angry, Irritable Affect: Irritable Thought Process & Associations: Other (tangential) Thought Content: Bizarre thinking Hallucination Type: None Delusion Type: Paranoid Suicidal Ideation: No Homicidal Ideation: No Insight: Poor Judgment: Poor Results Labs Test 11/24/17 13:45 11/24/17 20:47 Stool C. difficile Toxin (PCR) NEGATIVE Stl C. difficile Toxin Epiderm 027 PRESUMPTIVE NEGATIVE White Blood Count 5.6 TH/MM3 Red Blood Count 4.14 MIL/MM3 Hemoglobin 13.6 GM/DL Hematocrit 38.5 % Mean Corpuscular Volume 93.0 FL Mean Corpuscular Hemoglobin 32.8 PG Mean Corpuscular Hemoglobin Concent 35.2 % Red Cell Distribution Width 13.4 % Platelet Count 285 TH/MM3 Mean Platelet Volume 7.7 FL Neutrophils (%) (Auto) 56.8 % Lymphocytes (%) (Auto) 27.8 % Monocytes (%) (Auto) 12.6 % Eosinophils (%) (Auto) 2.3 % Basophils (%) (Auto) 0.5 % Neutrophils # (Auto) 3.2 TH/MM3 Lymphocytes # (Auto) 1.6 TH/MM3 Monocytes # (Auto) 0.7 TH/MM3 Eosinophils # (Auto) 0.1 TH/MM3 Basophils # (Auto) 0.0 TH/MM3 CBC Comment DIFF FINAL Differential Comment Blood Urea Nitrogen 26 MG/DL Creatinine 1.18 MG/DL Random Glucose 85 MG/DL Calcium Level 9.4 MG/DL Magnesium Level 2.2 MG/DL Sodium Level 141 MEQ/L Potassium Level 3.8 MEQ/L Chloride Level 105 MEQ/L Carbon Dioxide Level 28.4 MEQ/L Anion Gap 8 MEQ/L Estimat Glomerular Filtration Rate 62 ML/MIN Date/Time Source Procedure Growth Status 11/24/17 13:45 Stool Stool - Final Norovirus Complete Labs reviewed. Vitals/IOs Vital Signs Date Time Temp Pulse Resp B/P (MAP) Pulse Ox O2 Delivery O2 Flow Rate FiO2 11/25/17 06:21 97.1 82 16 173/74 (107) 11/24/17 16:46 100 Assessment & Plan Problem List: (1) Other psychotic disorder not due to a substance or known physiological condition ICD Codes: F28 - Other psychotic disorder not due to a substance or known physiological condition (2) Cannabis abuse ICD Codes: F12.10 - Cannabis abuse, uncomplicated Assessment & Plan Add Depakote ER 20mg/kg x 69.9kg ~= 1,500mg daily for mood stabilization. LFTs and plt ok. Check Depakote and ammonia level end of the week. Continue Abilify as ordered. [place] contact precautions for norovirus, defer further management of this issue to the hospitalist. Continue to monitor on inpatient unit. Continue other meds and care as ordered. Justification for Cont. Inpt. Med changes. Impairment in reality construction. High risk for decompensation in less restrictive environment. Discharge Planning Placement. Case discussed with counselor. Request HC Surrog/Guard Advoc?: Yes Elian Goode MD Nov 25, 2017 10:31
--- NOTE | 2017-11-25 11:37 | PD.TTN ---
Patient Problems 1. Discharge planning 2. Medication compliance 3. Knowledge deficit 4. Lack of coping skills Progress Toward Goals Provider Present: Dr. Edmund Goode Provider Input: Cannot live independently, continued med adjustments. Psychiatric Counselors Present: Torres Blanco Jr., [facility], Rama Storey, [facility] , Lilia Coronel, [facility] Group Spec/RT/OT/RAMOS Present: CLAUDY Jones, Isidoro Burgos, OT Group Spec/RT/OT/RAMOS Input: Pt attends select group activities, needs some redirection. Pt has presented with a calmer mood, Deidre Zhang Nov 25, 2017 11:37
--- NOTE | 2017-11-25 11:45 | RADRPT ---
EXAM DATE/TIME: 11/25/2017 11:20 [facility] COMPARISON: No previous studies available for comparison. INDICATIONS : Dysphagia. FLUORO TIME: 1.8 minutes IMAGE COUNT: 1 CONTRAST: Dose as prescribed by speech pathologist. MEDICAL HISTORY : none known SURGICAL HISTORY : none known ENCOUNTER: Initial ACUITY: 1 day PAIN SCORE: Non-responsive. LOCATION: Bilateral neck FINDINGS: A modified barium swallow was performed with speech pathology. Patient was given a variety of liquids to swallow. Mild penetration was noted during the study. For a full detailed report, see report by the speech pathologist. CONCLUSION: Mild penetration. Rod Ybarra MD on November 25, 2017 at 11:42 Board Certified Radiologist. This report was verified electronically.
[2017-11-25] MEDS ORDERED: hydrALAZINE HCL 10 MG TAB PO PRN (13:00)
--- NOTE | 2017-11-25 13:00 | HHI.PR ---
Subjective Remarks Reconsult for diarrhea. Patient seen and examined. CDiff negative. (+) Norovirus. Discussed findings with patient. No loose stools today. No fever or chills. No nausea, vomiting or abdominal pain. Completed MBS with trace airway penetration. Objective Vitals Vital Signs Date Time Temp Pulse Resp B/P (MAP) Pulse Ox O2 Delivery O2 Flow Rate FiO2 11/25/17 06:21 97.1 82 16 173/74 (107) 11/24/17 16:46 96.5 91 18 120/80 (93) 100 Result Diagram: 11/24/17204611/24/172046 Objective Remarks GENERAL: Thin, chronically ill appearing male patient in NAD. Awake and alert. Lying in bed. Cooperative. SKIN: Warm and dry. No rash. HEAD: Normocephalic. Atraumatic. EYES: EOMI. No scleral icterus. No injection or drainage. ENT: No nasal bleeding or discharge. Mucous membranes pink and moist. (+) involuntary tongue movements noted. NECK: Trachea midline. CARDIOVASCULAR: Regular rate and rhythm. S1, S2 noted. No murmur appreciated. RESPIRATORY: Nonlabored. Clear to auscultation. Breath sounds equal bilaterally. GASTROINTESTINAL: Abdomen soft, non-tender, nondistended. Hypoactive bowel sounds x4. MUSCULOSKELETAL: No obvious deformities. Extremities without clubbing, cyanosis , or edema. NEUROLOGICAL: Awake and alert. No obvious cranial nerve deficits. Able to move all extremities spontaneously. Involuntary movements noted of the neck and head. No focal neurologic findings appreciated. (+)Speech impediment. PSYCHIATRIC: Appropriate mood and affect; insight and judgment normal. Procedures None Medications and IVs Current Medications Medications (Trade) Dose Ordered Sig/Dat Route Start Time Stop Time Status Last Admin (Tylenol) 650 mg Q4H PRN PO 11/12/17 19:15 11/14/17 20:47 (Milk Of Magnesia Liq) 30 ml DAILY PRN PO 11/12/17 19:15 (Mag-Al Plus Susp Liq) 30 ml Q6H PRN PO 11/12/17 19:15 (Habitrol 21 Mg Patch.24 Hr) 1 patch DAILY T-DERMAL 11/13/17 09:00 11/25/17 09:00 Miscellaneous Information 1 DAILY T-DERMAL 11/13/17 09:00 11/25/17 09:00 (Ativan) 1 mg Q4H PRN PO 11/12/17 20:15 11/22/17 17:34 (Ativan Inj) 1 mg Q4H PRN IM 11/12/17 20:15 (Ativan) 2 mg Q2H PRN PO 11/12/17 20:15 (Ativan Inj) 2 mg Q2H PRN IM 11/12/17 20:15 (Ativan Inj) 2 mg Q1H PRN IM 11/12/17 20:15 (Ativan Inj) 2 mg Q15M PRN IM 11/12/17 20:15 (Vitamin B1) 100 mg DAILY PO 11/14/17 09:00 11/25/17 09:00 (Folate) 1 mg DAILY PO 11/14/17 09:00 11/25/17 09:00 (Vitamin D3) 1,000 units DAILY PO 11/14/17 09:00 11/25/17 09:00 (Neurontin) 400 mg TID PO 11/13/17 18:00 11/25/17 09:00 (Spiriva Inh) 18 mcg DAILY INH 11/14/17 09:00 11/25/17 09:00 (Ativan) 1 mg Q6H PRN PO 11/13/17 16:30 11/18/17 20:22 (Ativan Inj) 1 mg Q6H PRN IM 11/13/17 16:30 11/25/17 02:35 (Benadryl) 50 mg HS PRN PO 11/13/17 16:30 11/25/17 01:10 (Colace) 100 mg BID PO 11/14/17 11:00 Future Hold 11/14/17 20:14 (Dulcolax Ec) 10 mg DAILY PRN PO 11/14/17 09:45 Future Hold 11/14/17 10:46 (Aspirin Chew) 81 mg DAILY CHEW 11/15/17 09:00 11/25/17 09:00 (Flonase Ron Spr) 1 spray HS EACH NARE 11/14/17 21:00 11/24/17 21:30 (Mobic) 15 mg DAILY PO 11/15/17 09:00 Future Hold 11/24/17 09:00 (Hytrin) 2 mg HS PO 11/14/17 21:00 Future Hold 11/23/17 20:17 (Lioresal) 10 mg TID PO 11/14/17 18:00 11/25/17 09:00 (Lactinex) 1 tab Q12HR PO 11/19/17 21:00 11/25/17 09:00 (Cogentin) 1 mg Q12HR PO 11/20/17 21:00 11/25/17 09:00 (Abilify) 25 mg DAILY PO 11/25/17 09:00 11/25/17 09:00 (Pill Splitter) 1 ea UNSCH PRN OTHER 11/24/17 15:15 (Duoneb Neb) 1 ampule Q4HR NEB PRN NEB 11/24/17 16:00 A/P Assessment and Plan Psychosis -management per psychiatric team Acute viral gastroenteritis -no loose stools today. Patient is afebrile. Does not appear toxic. -stool studies (+)Norovirus. C diff negative. -encourage oral intake -Continue to hold Imodium, laxatives and stool softeners. -Continue on Lactinex -place patient on contact precautions -discussed proper hand washing Dysphagia -speech therapy currently following. S/p MBS showing MILD TO MODERATE ORAL PHASE AND MILD TO MODERATE PHARYGNEAL PHASE DYSPHAGIA CHARACTERIZED BY MULTIPLE EPISODES OF AIRWAY PENETRATION BUT NO OVERT ASPIRATION EVENTS. -diet advanced to mechanical soft solids with thin liquids. Hypertension -hypotensive, Hytrin held. Now with elevated BP. Resume Hytrin. -Hydralazine po prn with parameters -monitor BP and adjust treatment accordingly COPD, not in acute exacerbation -continue on home dose of Spiriva -Duonebs as needed HX of agent orange exposure -continue on home dose of Gabapentin -continue on Baclofen DVT ppx -Patient is ambulating Patient is stable from a hospitalist standpoint. Will sign off for now. Please reconsult if needed. Brittany Malhotra Nov 25, 2017 13:00
[2017-11-25] MEDS: DIVALPROEX SODIUM E.R. 500 MG TAB PO SCH (13:15)
[2017-11-25 18:23] VITALS: BP 121/58; PULSE 82; RESP 18; TEMP 97.3; O2SAT 98
[2017-11-25] MEDS: LORazepam 1 MG TAB PO PRN (19:35)
[2017-11-25] MEDS: ACETAMINOPHEN 325 MG TAB PO PRN (19:35)
[2017-11-25] MEDS: FLUTICASONE PROPIONATE 50 MCG/ACT 16 GM NASAL SPRAY EACH NARE SCH (19:38)
[2017-11-25] MEDS: TERAZOSIN HCL 1 MG CAP PO SCH (21:00)
[2017-11-26] MEDS: LACTOBACILLUS ACIDOPHILUS TAB PO SCH ×2 (09:00→21:00)
[2017-11-26] MEDS: BENZTROPINE MESYLATE 1 MG TAB PO SCH ×2 (09:00→21:00)
[2017-11-26] MEDS: BACLOFEN 10 MG TAB PO SCH ×4 (09:00→18:00)
[2017-11-26] MEDS: REMOVE OLD PATCH T-DERMAL SCH (09:00)
[2017-11-26] MEDS: THIAMINE HCL 100 MG TAB PO SCH (09:00)
[2017-11-26] MEDS: NICOTINE 21 MG/24 HR PATCH T-DERMAL SCH (09:00)
[2017-11-26] MEDS: GABAPENTIN 400 MG CAP PO SCH ×4 (09:00→18:00)
[2017-11-26] MEDS: ASPIRIN 81 MG CHEW TAB CHEW SCH (09:00)
[2017-11-26] MEDS: CHOLECALCIFEROL (VIT D3) 1000 UNIT TAB PO SCH (09:00)
[2017-11-26] MEDS: DIVALPROEX SODIUM E.R. 500 MG TAB PO SCH (09:00)
[2017-11-26] MEDS: TIOTROPIUM BROMIDE 18 MCG INH INH SCH (09:00)
[2017-11-26] MEDS: FOLIC ACID 1 MG TAB PO SCH (09:00)
--- NOTE | 2017-11-26 10:19 | HHI.PYPN ---
Subjective Chief Complaint: Psychosis Remarks Patient seen and examined. Chart reviewed. Case discussed with nursing staff who reports patient remains irritable and disorganized. The patient has not been placed on isolation precautions as I ordered. I have spoken with the patient's nurse as well as the charge nurse and the patient will be transferred to [facility] psych unit and isolation precautions will be instituted as per my order. The patient refused his medications this morning per nurse, rambling something about being poisoned. Nurse thought this might have something to do with the size of the Depakote tabs, and so I tried to order Depakene liquid, but he refused this as well. For me today, patient is still disorganized, irritable, discharge focused. He is internally stimulated. No evident side effects from medications. No physical complaints. Review of Systems ROS Limitations: Uncooperative, Psychotic, Poor Historian Other Limited ROS secondary to above. Mental Status Examination Appearance: Disheveled Consciousness: Alert Orientation: Person, Place Motor Activity: Other (no new motor abnormalities noted) Speech: Speech impediment Language: Other (remains rambling) Fund of Knowledge: Adequate Attention and Concentration: Easily Distracted Memory: Impaired (difficult to assess) Mood: Angry, Irritable Affect: Irritable (remains quite irritable) Thought Process & Associations: Disorganized Thought Content: Bizarre thinking Hallucination Type: Other (internally stimulated) Delusion Type: Paranoid Suicidal Ideation: No (no SI voiced) Homicidal Ideation: No (no HI voiced) Insight: Poor Judgment: Poor Results Labs Date/Time Source Procedure Growth Status 11/24/17 13:45 Stool Stool - Final Norovirus Complete Labs reviewed. Vitals/IOs Vital Signs Date Time Temp Pulse Resp B/P (MAP) Pulse Ox O2 Delivery O2 Flow Rate FiO2 11/25/17 18:23 97.3 82 18 121/58 (79) 98 Assessment & Plan Problem List: (1) Other psychotic disorder not due to a substance or known physiological condition ICD Codes: F28 - Other psychotic disorder not due to a substance or known physiological condition (2) Cannabis abuse ICD Codes: F12.10 - Cannabis abuse, uncomplicated Assessment & Plan Continue to offer oral medications including Depakote and Abilify, and I will titrate the Abilify to 30mg daily to target psychosis. If patient continues to refuse medications including psychotropics, may need to switch agents to ones with available parenteral options. Transfer to medical psychiatric unit and institute isolation precautions as ordered. Hospitalist input noted and appreciated. Continue other meds and care as ordered. Justification for Cont. Inpt. Impairment in self-care. Impairment in reality construction. Medication changes. High risk for decompensation in less restrictive environment. Discharge Planning Placement Request HC Surrog/Guard Advoc?: Yes Elian Goode MD Nov 26, 2017 10:19
[2017-11-26] MEDS: VALPROIC ACID SYRUP 250 MG/5 ML UDC PO SCH ×2 (11:30→21:00)
[2017-11-26] MEDS: LORazepam 2 MG TAB PO PRN (12:13)
[2017-11-26 18:00] VITALS: BP 136/73; PULSE 81; RESP 18; TEMP 97.7; O2SAT 99
[2017-11-26] MEDS: TERAZOSIN HCL 1 MG CAP PO SCH (21:00)
[2017-11-26] MEDS: FLUTICASONE PROPIONATE 50 MCG/ACT 16 GM NASAL SPRAY EACH NARE SCH (21:00)
[2017-11-27 06:00] VITALS: BP 133/69; PULSE 75; RESP 18; TEMP 97.4; O2SAT 99
[2017-11-27] MEDS: GABAPENTIN 400 MG CAP PO SCH ×3 (09:00→17:43)
[2017-11-27] MEDS: THIAMINE HCL 100 MG TAB PO SCH (09:00)
[2017-11-27] MEDS: FOLIC ACID 1 MG TAB PO SCH (09:00)
[2017-11-27] MEDS: ARIPiprazole 10 MG TAB PO SCH (09:00)
[2017-11-27] MEDS: VALPROIC ACID SYRUP 250 MG/5 ML UDC PO SCH ×2 (09:00→21:00)
[2017-11-27] MEDS: LACTOBACILLUS ACIDOPHILUS TAB PO SCH ×2 (09:00→21:00)
[2017-11-27] MEDS: REMOVE OLD PATCH T-DERMAL SCH (09:00)
[2017-11-27] MEDS: CHOLECALCIFEROL (VIT D3) 1000 UNIT TAB PO SCH (09:00)
[2017-11-27] MEDS: ASPIRIN 81 MG CHEW TAB CHEW SCH (09:00)
[2017-11-27] MEDS: TIOTROPIUM BROMIDE 18 MCG INH INH SCH (09:00)
[2017-11-27] MEDS: NICOTINE 21 MG/24 HR PATCH T-DERMAL SCH (09:00)
[2017-11-27] MEDS: BACLOFEN 10 MG TAB PO SCH ×3 (09:00→17:43)
[2017-11-27] MEDS: BENZTROPINE MESYLATE 1 MG TAB PO SCH ×2 (09:00→21:26)
--- NOTE | 2017-11-27 11:27 | HHI.PYPN ---
Subjective Chief Complaint: Psychosis Remarks Patient seen and examined with nurse. Chart reviewed. Case discussed with nursing staff. Patient accepted about half of his Depakene liquid today and did accept his pills. Case discussed with counselor. We discuss difficulty with placement given ongoing behaviors and agree to initiate a state hospital referral. On my exam today, patient remains quite irritable and dysphoric. He thumps his chest and demands to be discharged. He is not physically aggressive but endeavors to be menacing. He tells me, "No bullshit! I want out today! AMA!" Speech and thought process do seem a little clearer today. No side effects from medications. No physical complaints. RN informs me that patient has been cleared by infection control to have contact precautions lifted and so can be transferred back to high acuity unit; I d/w charge manager. Review of Systems ROS Limitations: Psychotic, Poor Historian Except as stated in HPI: all other systems reviewed are Neg Mental Status Examination Appearance: Disheveled Consciousness: Alert Orientation: Person, Place Motor Activity: Other (tongue darting and head turning again decreased. No new motor abnormalities noted.) Speech: Speech impediment Language: Other (somewhat more coherent today) Fund of Knowledge: Adequate Attention and Concentration: Easily Distracted Memory: Impaired (difficult to assess) Mood: Angry, Irritable Affect: Irritable (remains quite irritable) Thought Process & Associations: Disorganized (a little bit more organized today ) Thought Content: Bizarre thinking Hallucination Type: None Delusion Type: Paranoid Suicidal Ideation: No (no SI voiced) Homicidal Ideation: No (no HI voiced) Insight: Poor Judgment: Poor Results Labs Date/Time Source Procedure Growth Status 11/24/17 13:45 Stool Stool - Final Norovirus Complete Labs reviewed. Vitals/IOs Vital Signs Date Time Temp Pulse Resp B/P (MAP) Pulse Ox O2 Delivery O2 Flow Rate FiO2 11/27/17 06:00 97.4 75 18 133/69 (90) 99 Intake and Output 11/27/17 11/27/17 11/28/17 08:00 16:00 00:00 Intake Total 240 ml Balance 240 ml Assessment & Plan Problem List: (1) Other psychotic disorder not due to a substance or known physiological condition ICD Codes: F28 - Other psychotic disorder not due to a substance or known physiological condition (2) Cannabis abuse ICD Codes: F12.10 - Cannabis abuse, uncomplicated Assessment & Plan Continue Depakene liquid as ordered. We will plan to check a level after approximately 4 days of good adherence to this medication. Continue Abilify as ordered; this does seem to be improving thought disorder somewhat. Plan to transfer back to high acuity unit now that contact isolation has been lifted. Continue other medications and care as ordered. Justification for Cont. Inpt. Impairment in safety. Impairment in self-care. High risk for decompensation in less restrictive environment. Discharge Planning I will initiate a state hospital referral in case patient's hostility and irritability cannot be ameliorated to a sufficient degree to allow for successful placement. Case discussed with counselor. Request HC Surrog/Guard Advoc?: Yes Elian Goode MD Nov 27, 2017 11:27
--- NOTE | 2017-11-27 13:25 | EKG ---
Date Performed: 11/23/2017 Time Performed: 13:46:28 PTAGE: 67 years EKG: SINUS TACHYCARDIA MARKED LEFT AXIS DEVIATION POSSIBLE RIGHT VENTRICULAR CONDUCTION DELAY SE PTAL MYOCARDIAL INFARCTION , PROBABLY OLD ABNORMAL ECG PREVIOUS TRACING : 11/13/2017 08.57 Since the prior tracing, there has been no significant whelan DOCTOR: Elian Fontaine Interpretating Date/Time 11/27/2017 13:24:14
[2017-11-27] MEDS: FLUTICASONE PROPIONATE 50 MCG/ACT 16 GM NASAL SPRAY EACH NARE SCH (21:00)
[2017-11-27] MEDS: diphenhydrAMINE HCL 50 MG CAP PO PRN (21:26)
[2017-11-27] MEDS: ACETAMINOPHEN 325 MG TAB PO PRN (21:26)
[2017-11-27] MEDS: LORazepam 1 MG TAB PO PRN (21:27)
[2017-11-27] MEDS: TERAZOSIN HCL 1 MG CAP PO SCH (21:27)
[2017-11-28 05:59] VITALS: BP 113/66; PULSE 77; RESP 16; TEMP 96.4; O2SAT 99
[2017-11-28] MEDS: NICOTINE 21 MG/24 HR PATCH T-DERMAL SCH (08:39)
[2017-11-28] MEDS: TIOTROPIUM BROMIDE 18 MCG INH INH SCH (08:40)
[2017-11-28] MEDS: VALPROIC ACID SYRUP 250 MG/5 ML UDC PO SCH ×2 (08:40→21:00)
[2017-11-28] MEDS: ASPIRIN 81 MG CHEW TAB CHEW SCH (08:41)
[2017-11-28] MEDS: BACLOFEN 10 MG TAB PO SCH ×3 (08:41→18:21)
[2017-11-28] MEDS: GABAPENTIN 400 MG CAP PO SCH ×3 (08:41→18:21)
[2017-11-28] MEDS: FOLIC ACID 1 MG TAB PO SCH (08:41)
[2017-11-28] MEDS: CHOLECALCIFEROL (VIT D3) 1000 UNIT TAB PO SCH (08:41)
[2017-11-28] MEDS: LACTOBACILLUS ACIDOPHILUS TAB PO SCH ×2 (08:42→21:00)
[2017-11-28] MEDS: ARIPiprazole 10 MG TAB PO SCH (08:42)
[2017-11-28] MEDS: BENZTROPINE MESYLATE 1 MG TAB PO SCH ×2 (08:42→21:26)
[2017-11-28] MEDS: REMOVE OLD PATCH T-DERMAL SCH (08:42)
[2017-11-28] MEDS: THIAMINE HCL 100 MG TAB PO SCH (08:42)
--- NOTE | 2017-11-28 10:03 | PD.TTN ---
Patient Problems 1. Discharge planning 2. Medication compliance 3. Knowledge deficit 4. Lack of coping skills Progress Toward Goals Provider Present: Dr. Edmund Goode Provider Input: 11/28/2017: State Referral, Psychotic, high risk, not placeable. Cannot live independently, continued med adjustments. Nurse(s) Input: No Nurse available Psychiatric Counselors Present: Airam Restrepo LCSW, Torres Blanco Jr., 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 Discharge Plan Discharge in planning stages by Counselor. Documentation Scribe: Deidre Salcedo Nov 28, 2017 10:03
[2017-11-28] MEDS ORDERED: DIVALPROEX SODIUM E.R. 250 MG TAB PO SCH (12:25)
[2017-11-28] MEDS: ACETAMINOPHEN 325 MG TAB PO PRN ×2 (12:32→21:43)
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
[2017-11-28 18:14] VITALS: BP 158/86; PULSE 88; RESP 19; TEMP 99.1; O2SAT 98
[2017-11-28] MEDS: DIVALPROEX SODIUM E.R. 250 MG TAB PO SCH (21:00)
[2017-11-28] MEDS: FLUTICASONE PROPIONATE 50 MCG/ACT 16 GM NASAL SPRAY EACH NARE SCH (21:00)
[2017-11-28] MEDS: TERAZOSIN HCL 1 MG CAP PO SCH (21:27)
[2017-11-29 06:36] VITALS: BP 125/67; PULSE 84; RESP 16; TEMP 96.8; O2SAT 99
[2017-11-29] MEDS: NICOTINE 21 MG/24 HR PATCH T-DERMAL SCH (09:00)
[2017-11-29] MEDS: DIVALPROEX SODIUM E.R. 250 MG TAB PO SCH ×2 (09:00→20:40)
[2017-11-29] MEDS: REMOVE OLD PATCH T-DERMAL SCH (09:00)
[2017-11-29] MEDS: VALPROIC ACID SYRUP 250 MG/5 ML UDC PO SCH ×2 (09:00→20:40)
[2017-11-29] MEDS ORDERED: DIVALPROEX SODIUM E.R. 250 MG TAB PO SCH (09:00)
[2017-11-29] MEDS: TIOTROPIUM BROMIDE 18 MCG INH INH SCH (09:21)
[2017-11-29] MEDS: FOLIC ACID 1 MG TAB PO SCH (09:24)
[2017-11-29] MEDS: CHOLECALCIFEROL (VIT D3) 1000 UNIT TAB PO SCH (09:25)
[2017-11-29] MEDS: THIAMINE HCL 100 MG TAB PO SCH (09:25)
[2017-11-29] MEDS: GABAPENTIN 400 MG CAP PO SCH ×3 (09:25→17:07)
[2017-11-29] MEDS: BENZTROPINE MESYLATE 1 MG TAB PO SCH ×2 (09:25→20:39)
[2017-11-29] MEDS: ASPIRIN 81 MG CHEW TAB CHEW SCH (09:25)
[2017-11-29] MEDS: ARIPiprazole 10 MG TAB PO SCH (09:26)
[2017-11-29] MEDS: BACLOFEN 10 MG TAB PO SCH ×3 (10:55→17:07)
[2017-11-29] MEDS: LACTOBACILLUS ACIDOPHILUS TAB PO SCH ×2 (10:55→22:00)
--- NOTE | 2017-11-29 13:48 | HHI.PYPN ---
Subjective Chief Complaint: Psychosis Remarks Pt seen and discussed with staff. He has been compliant with medications and cooperative with staff. Speech remains pressured and mumbling. He is observed having an animated conversation with the wall. 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 Wham!" but calms when interview is completed. Behaviors remain disorganzied. Mental Status Examination Appearance: Disheveled Consciousness: Alert Orientation: Person, Place Motor Activity: Other (tongue darting and head turning again decreased. No new motor abnormalities noted.) Speech: Speech impediment Language: Other (somewhat more coherent today) Fund of Knowledge: Adequate Attention and Concentration: Other (poor) Memory: Impaired (difficult to assess) Mood: Angry, Irritable Affect: Irritable (remains quite irritable) Thought Process & Associations: Disorganized (a little bit more organized today ) Thought Content: Bizarre thinking Hallucination Type: None Delusion Type: Paranoid Suicidal Ideation: No (no SI voiced) Homicidal Ideation: No (no HI voiced) Insight: Poor Judgment: Poor Results Labs Test 11/29/17 06:36 Ammonia 35 MCMOL/L Valproic Acid (Depakene) Level 18 MCG/ML Date/Time Source Procedure Growth Status 11/24/17 13:45 Stool Stool - Final Norovirus Complete Vitals/IOs Vital Signs Date Time Temp Pulse Resp B/P (MAP) Pulse Ox O2 Delivery O2 Flow Rate FiO2 11/29/17 06:36 96.8 84 16 125/67 (86) 99 Assessment & Plan Problem List: (1) Other psychotic disorder not due to a substance or known physiological condition ICD Codes: F28 - Other psychotic disorder not due to a substance or known physiological condition (2) Cannabis abuse ICD Codes: F12.10 - Cannabis abuse, uncomplicated Assessment & Plan Continue current tx plan. Pt has been referred to [facility]. Estimated LOS : days Justification for Cont. Inpt. impairments in reality testing and social functioning Request HC Surrog/Guard Advoc?: Yes Carmen Sarah MD Nov 29, 2017 13:48
[2017-11-29] MEDS: LORazepam 1 MG TAB PO PRN (14:15)
[2017-11-29] MEDS: ACETAMINOPHEN 325 MG TAB PO PRN ×2 (15:03→22:29)
[2017-11-29 17:48] VITALS: BP 121/75; PULSE 90; RESP 17; TEMP 97.6; O2SAT 98
[2017-11-29] MEDS: FLUTICASONE PROPIONATE 50 MCG/ACT 16 GM NASAL SPRAY EACH NARE SCH (20:39)
[2017-11-29] MEDS: TERAZOSIN HCL 1 MG CAP PO SCH (20:39)
[2017-11-30 06:23] VITALS: BP 117/56; PULSE 69; RESP 20; TEMP 97.6; O2SAT 100
[2017-11-30] MEDS: TIOTROPIUM BROMIDE 18 MCG INH INH SCH (08:59)
[2017-11-30] MEDS: VALPROIC ACID SYRUP 250 MG/5 ML UDC PO SCH ×2 (09:00→21:00)
[2017-11-30] MEDS: DIVALPROEX SODIUM E.R. 250 MG TAB PO SCH ×2 (09:00→21:00)
[2017-11-30] MEDS: REMOVE OLD PATCH T-DERMAL SCH (09:00)
[2017-11-30] MEDS: NICOTINE 21 MG/24 HR PATCH T-DERMAL SCH (09:00)
[2017-11-30] MEDS: ASPIRIN 81 MG CHEW TAB CHEW SCH (09:01)
[2017-11-30] MEDS: THIAMINE HCL 100 MG TAB PO SCH (09:02)
[2017-11-30] MEDS: LACTOBACILLUS ACIDOPHILUS TAB PO SCH ×2 (09:02→21:00)
[2017-11-30] MEDS: GABAPENTIN 400 MG CAP PO SCH ×3 (09:02→18:28)
[2017-11-30] MEDS: CHOLECALCIFEROL (VIT D3) 1000 UNIT TAB PO SCH (09:02)
[2017-11-30] MEDS: ARIPiprazole 10 MG TAB PO SCH (09:02)
[2017-11-30] MEDS: FOLIC ACID 1 MG TAB PO SCH (09:02)
[2017-11-30] MEDS: BACLOFEN 10 MG TAB PO SCH ×3 (09:02→18:28)
[2017-11-30] MEDS: BENZTROPINE MESYLATE 1 MG TAB PO SCH ×2 (09:11→21:00)
--- NOTE | 2017-11-30 12:16 | HHI.PYPN ---
Subjective Chief Complaint: Psychosis Remarks Pt seen and discussed with staff. He refused Depakote this morning and states that he will not take it again. He became agitated this morning and demanded playing cards but was redirectable. Later pt c/o of R hip pain to RN. Pt seen with RN present. There is a tennis ball sized mass on L lateral posterior aspect of hip. Pt cannot provide any history. He is noted to ambulate easily without deficits. Mental Status Examination Appearance: Disheveled Consciousness: Alert Orientation: Person, Place Motor Activity: Other (tongue darting and head turning again decreased. No new motor abnormalities noted.) Speech: Speech impediment Language: Other (somewhat more coherent today) Fund of Knowledge: Adequate Attention and Concentration: Other (poor) Memory: Impaired (difficult to assess) Mood: Angry, Irritable Affect: Irritable (remains quite irritable) Thought Process & Associations: Disorganized (a little bit more organized today ) Thought Content: Bizarre thinking Hallucination Type: None Delusion Type: Paranoid Suicidal Ideation: No (no SI voiced) Homicidal Ideation: No (no HI voiced) Insight: Poor Judgment: Poor Results Labs Date/Time Source Procedure Growth Status 11/24/17 13:45 Stool Stool - Final Norovirus Complete Vitals/IOs Vital Signs Date Time Temp Pulse Resp B/P (MAP) Pulse Ox O2 Delivery O2 Flow Rate FiO2 11/30/17 06:23 97.6 69 20 117/56 (76) 100 Assessment & Plan Problem List: (1) Other psychotic disorder not due to a substance or known physiological condition ICD Codes: F28 - Other psychotic disorder not due to a substance or known physiological condition (2) Cannabis abuse ICD Codes: F12.10 - Cannabis abuse, uncomplicated Assessment & Plan Continue current medications regimen. Will obtain imaging and consult for hip mass. Estimated LOS: days Justification for Cont. Inpt. impairments in reality testing Request HC Surrog/Guard Advoc?: Yes Carmen Sarah MD Nov 30, 2017 12:15
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
--- NOTE | 2017-11-30 16:56 | RADRPT ---
EXAM DATE/TIME: 11/30/2017 16:01 [facility] COMPARISON: No previous studies available for comparison. INDICATIONS : Right hip pain MEDICAL HISTORY : None. SURGICAL HISTORY : None. ENCOUNTER: Initial ACUITY: 1 day PAIN SCORE: 5/10 LOCATION: Right hip FINDINGS: Examination of the right hip was performed with AP Pelvis. The primary and secondary trabecular kaykay percy of the femoral neck is intact. The hip joint is of normal width without significant sclerosis or bony hypertrophy. The acetabulum is grossly intact. CONCLUSION: No acute fracture identified. Renny Garcia MD on November 30, 2017 at 16:53 Board Certified Radiologist. This report was verified electronically.
[2017-11-30] MEDS: ACETAMINOPHEN 325 MG TAB PO PRN ×2 (17:02→23:37)
[2017-11-30] MEDS: TERAZOSIN HCL 1 MG CAP PO SCH (21:00)
[2017-11-30] MEDS: FLUTICASONE PROPIONATE 50 MCG/ACT 16 GM NASAL SPRAY EACH NARE SCH (21:00)
[2017-11-30 22:00] VITALS: BP 126/60; PULSE 75; RESP 17; TEMP 97.5; O2SAT 100
[2017-11-30] MEDS: diphenhydrAMINE HCL 50 MG CAP PO PRN (23:37)
[2017-12-01] MEDS: LORazepam 2 MG TAB PO PRN (01:11)
[2017-12-01 06:03] VITALS: BP 138/77; PULSE 75; RESP 18; TEMP 97.8; O2SAT 98
[2017-12-01] MEDS: VALPROIC ACID SYRUP 250 MG/5 ML UDC PO SCH ×2 (09:00→20:21)
[2017-12-01] MEDS: NICOTINE 21 MG/24 HR PATCH T-DERMAL SCH (09:00)
[2017-12-01] MEDS: MELOXICAM 15 MG TAB PO SCH (09:00)
[2017-12-01] MEDS: REMOVE OLD PATCH T-DERMAL SCH (09:00)
[2017-12-01] MEDS: THIAMINE HCL 100 MG TAB PO SCH (09:21)
[2017-12-01] MEDS: ASPIRIN 81 MG CHEW TAB CHEW SCH (09:21)
[2017-12-01] MEDS: BACLOFEN 10 MG TAB PO SCH ×3 (09:21→17:06)
[2017-12-01] MEDS: TIOTROPIUM BROMIDE 18 MCG INH INH SCH (09:21)
[2017-12-01] MEDS: ARIPiprazole 10 MG TAB PO SCH (09:21)
[2017-12-01] MEDS: LACTOBACILLUS ACIDOPHILUS TAB PO SCH ×2 (09:21→20:22)
[2017-12-01] MEDS: FOLIC ACID 1 MG TAB PO SCH (09:21)
[2017-12-01] MEDS: BENZTROPINE MESYLATE 1 MG TAB PO SCH ×2 (09:21→20:22)
[2017-12-01] MEDS: GABAPENTIN 400 MG CAP PO SCH ×3 (09:21→17:06)
[2017-12-01] MEDS: DIVALPROEX SODIUM E.R. 250 MG TAB PO SCH ×2 (09:22→20:22)
[2017-12-01] MEDS: CHOLECALCIFEROL (VIT D3) 1000 UNIT TAB PO SCH (09:22)
[2017-12-01] MEDS: ACETAMINOPHEN 325 MG TAB PO PRN (10:58)
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
[2017-12-01 17:18] VITALS: BP 158/78; PULSE 95; RESP 18; TEMP 98.6; O2SAT 99
[2017-12-01] MEDS: FLUTICASONE PROPIONATE 50 MCG/ACT 16 GM NASAL SPRAY EACH NARE SCH (20:22)
[2017-12-01] MEDS: TERAZOSIN HCL 1 MG CAP PO SCH (20:22)
[2017-12-01] MEDS: clonazePAM 0.5 MG TAB PO SCH (20:22)
[2017-12-02] MEDS: DIVALPROEX SODIUM E.R. 250 MG TAB PO SCH ×3 (09:00→20:27)
[2017-12-02] MEDS: REMOVE OLD PATCH T-DERMAL SCH (09:00)
[2017-12-02] MEDS: NICOTINE 21 MG/24 HR PATCH T-DERMAL SCH (09:00)
[2017-12-02] MEDS: VALPROIC ACID SYRUP 250 MG/5 ML UDC PO SCH ×3 (09:00→20:27)
[2017-12-02] MEDS: TIOTROPIUM BROMIDE 18 MCG INH INH SCH (09:25)
[2017-12-02] MEDS: clonazePAM 0.5 MG TAB PO SCH ×2 (09:28→20:27)
[2017-12-02] MEDS: ASPIRIN 81 MG CHEW TAB CHEW SCH (09:28)
[2017-12-02] MEDS: LACTOBACILLUS ACIDOPHILUS TAB PO SCH ×2 (09:28→20:27)
[2017-12-02] MEDS: BACLOFEN 10 MG TAB PO SCH ×3 (09:28→18:06)
[2017-12-02] MEDS: FOLIC ACID 1 MG TAB PO SCH (09:28)
[2017-12-02] MEDS: BENZTROPINE MESYLATE 1 MG TAB PO SCH ×2 (09:28→20:27)
[2017-12-02] MEDS: ARIPiprazole 10 MG TAB PO SCH (09:28)
[2017-12-02] MEDS: THIAMINE HCL 100 MG TAB PO SCH (09:28)
[2017-12-02] MEDS: GABAPENTIN 400 MG CAP PO SCH ×3 (09:28→18:06)
[2017-12-02] MEDS: MELOXICAM 15 MG TAB PO SCH (09:28)
[2017-12-02] MEDS: CHOLECALCIFEROL (VIT D3) 1000 UNIT TAB PO SCH (09:28)
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
[2017-12-02] MEDS: ACETAMINOPHEN 325 MG TAB PO PRN (15:10)
[2017-12-02] MEDS: LORazepam 1 MG TAB PO PRN (15:23)
[2017-12-02 18:39] VITALS: BP 163/77; PULSE 84; RESP 19; TEMP 97.4; O2SAT 98
[2017-12-02] MEDS: FLUTICASONE PROPIONATE 50 MCG/ACT 16 GM NASAL SPRAY EACH NARE SCH (20:27)
[2017-12-02] MEDS: TERAZOSIN HCL 1 MG CAP PO SCH (20:27)
[2017-12-03] MEDS: diphenhydrAMINE HCL 50 MG CAP PO PRN (00:09)
[2017-12-03] MEDS: LORazepam 2 MG/ML VIAL IM PRN (00:10)
[2017-12-03 06:22] VITALS: BP 103/61; PULSE 82; RESP 16; TEMP 97.2; O2SAT 82
[2017-12-03] MEDS: REMOVE OLD PATCH T-DERMAL SCH (09:00)
[2017-12-03] MEDS: VALPROIC ACID SYRUP 250 MG/5 ML UDC PO SCH ×3 (09:00→21:00)
[2017-12-03] MEDS: THIAMINE HCL 100 MG TAB PO SCH (09:15)
[2017-12-03] MEDS: BENZTROPINE MESYLATE 1 MG TAB PO SCH ×2 (09:16→21:00)
[2017-12-03] MEDS: TIOTROPIUM BROMIDE 18 MCG INH INH SCH (09:16)
[2017-12-03] MEDS: ASPIRIN 81 MG CHEW TAB CHEW SCH (09:16)
[2017-12-03] MEDS: LACTOBACILLUS ACIDOPHILUS TAB PO SCH ×2 (09:16→21:10)
[2017-12-03] MEDS: BACLOFEN 10 MG TAB PO SCH ×3 (09:16→18:14)
[2017-12-03] MEDS: clonazePAM 0.5 MG TAB PO SCH ×2 (09:16→21:00)
[2017-12-03] MEDS: CHOLECALCIFEROL (VIT D3) 1000 UNIT TAB PO SCH (09:16)
[2017-12-03] MEDS: GABAPENTIN 400 MG CAP PO SCH ×3 (09:16→18:14)
[2017-12-03] MEDS: FOLIC ACID 1 MG TAB PO SCH (09:16)
[2017-12-03] MEDS: ARIPiprazole 10 MG TAB PO SCH (09:17)
[2017-12-03] MEDS: MELOXICAM 15 MG TAB PO SCH (09:17)
[2017-12-03] MEDS: DIVALPROEX SODIUM E.R. 250 MG TAB PO SCH ×2 (09:18→21:11)
[2017-12-03] MEDS: NICOTINE 21 MG/24 HR PATCH T-DERMAL SCH (09:18)
--- NOTE | 2017-12-03 16:34 | HHI.PYPN ---
Subjective Chief Complaint: Psychosis Remarks Patient seen for follow, chart reviewed. Discussion nursing staff reported the patient denying any suicide ideations, perceptual services patient with interview, noted to be superficially cooperative. Patient states that he is feeling "okay" reports sleeping well, no difficulty eating or drinking or bowel movement. Patient denies any perceptual disturbances, denying any SI or HI. Patient had been refusing liquid Depakote which will be discontinued at this time but will continue on tablet form. Review of Systems Except as stated in HPI: all other systems reviewed are Neg Mental Status Examination Appearance: Disheveled Consciousness: Alert Orientation: Person, Place Motor Activity: Normal gait Speech: Speech impediment Language: Other (somewhat more coherent today) Fund of Knowledge: Adequate Attention and Concentration: Other (Seeking discharge) Memory: Impaired (difficult to assess) Mood: Other ("Okay") Affect: Other (Guarded) Thought Process & Associations: Other ([place]) Thought Content: Appropriate Hallucination Type: None Delusion Type: Paranoid Suicidal Ideation: No (no SI voiced) Suicidal Plan: No Suicidal Intention: No Homicidal Ideation: No (no HI voiced) Homicidal Plan: No Homicidal Intention: No Insight: Poor Judgment: Poor Results Labs Labs reviewed Test 12/03/17 09:29 Valproic Acid (Depakene) Level 61 MCG/ML Date/Time Source Procedure Growth Status 11/24/17 13:45 Stool Stool - Final Norovirus Complete Vitals/IOs Vital Signs Date Time Temp Pulse Resp B/P (MAP) Pulse Ox O2 Delivery O2 Flow Rate FiO2 12/03/17 06:22 97.2 82 16 103/61 (41) 82 Assessment & Plan Problem List: (1) Other psychotic disorder not due to a substance or known physiological condition ICD Codes: F28 - Other psychotic disorder not due to a substance or known physiological condition (2) Cannabis abuse ICD Codes: F12.10 - Cannabis abuse, uncomplicated Assessment & Plan Patient this time noted to be superficially cooperative although was not wanted to participate in circumstances that this hospitalization. Patient had Depakote level done today which was on the lower end of the therapeutic range. Patient has not had any behavioral disturbances recently. We will continue current treatment continue monitor mood and behavior. Discharge planning in progress. Justification for Cont. Inpt. At risk for decompensation at lower level of care. Discharge Planning To be determined Request HC Surrog/Guard Advoc?: Yes Jordan Mar MD Dec 03, 2017 16:34
[2017-12-03 16:51] VITALS: BP 97/55; PULSE 78; RESP 18; TEMP 98.7; O2SAT 99
[2017-12-03] MEDS: TERAZOSIN HCL 1 MG CAP PO SCH (21:10)
[2017-12-03] MEDS: FLUTICASONE PROPIONATE 50 MCG/ACT 16 GM NASAL SPRAY EACH NARE SCH (21:10)
[2017-12-04 06:21] VITALS: BP 128/65; PULSE 84; RESP 18; TEMP 97.6; O2SAT 98
[2017-12-04] MEDS: ASPIRIN 81 MG CHEW TAB CHEW SCH (08:56)
[2017-12-04] MEDS: NICOTINE 21 MG/24 HR PATCH T-DERMAL SCH (08:56)
[2017-12-04] MEDS: DIVALPROEX SODIUM E.R. 250 MG TAB PO SCH ×2 (08:57→20:00)
[2017-12-04] MEDS: BACLOFEN 10 MG TAB PO SCH ×3 (08:57→17:21)
[2017-12-04] MEDS: CHOLECALCIFEROL (VIT D3) 1000 UNIT TAB PO SCH (08:57)
[2017-12-04] MEDS: FOLIC ACID 1 MG TAB PO SCH (08:57)
[2017-12-04] MEDS: THIAMINE HCL 100 MG TAB PO SCH (08:57)
[2017-12-04] MEDS: ARIPiprazole 10 MG TAB PO SCH (08:57)
[2017-12-04] MEDS: LACTOBACILLUS ACIDOPHILUS TAB PO SCH ×2 (08:57→19:59)
[2017-12-04] MEDS: GABAPENTIN 400 MG CAP PO SCH ×3 (08:57→17:22)
[2017-12-04] MEDS: VALPROIC ACID SYRUP 250 MG/5 ML UDC PO SCH (08:58)
[2017-12-04] MEDS: BENZTROPINE MESYLATE 1 MG TAB PO SCH ×2 (08:58→19:59)
[2017-12-04] MEDS: MELOXICAM 15 MG TAB PO SCH (08:58)
[2017-12-04] MEDS: REMOVE OLD PATCH T-DERMAL SCH (09:00)
[2017-12-04] MEDS: TIOTROPIUM BROMIDE 18 MCG INH INH SCH (09:00)
[2017-12-04] MEDS: clonazePAM 0.5 MG TAB PO SCH ×2 (09:00→20:01)
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
[2017-12-04] MEDS: TAMSULOSIN HCL 0.4 MG CAP PO SCH (17:24)
[2017-12-04] MEDS: FLUTICASONE PROPIONATE 50 MCG/ACT 16 GM NASAL SPRAY EACH NARE SCH (19:59)
[2017-12-04] MEDS: TERAZOSIN HCL 1 MG CAP PO SCH (19:59)
[2017-12-05 06:14] VITALS: BP 128/68; PULSE 83; RESP 18; TEMP 97.6; O2SAT 83
[2017-12-05] MEDS: TIOTROPIUM BROMIDE 18 MCG INH INH SCH (09:00)
[2017-12-05] MEDS: clonazePAM 0.5 MG TAB PO SCH (09:00)
[2017-12-05] MEDS: REMOVE OLD PATCH T-DERMAL SCH (09:00)
[2017-12-05] MEDS: NICOTINE 21 MG/24 HR PATCH T-DERMAL SCH (09:00)
[2017-12-05] MEDS: LACTOBACILLUS ACIDOPHILUS TAB PO SCH (09:35)
[2017-12-05] MEDS: THIAMINE HCL 100 MG TAB PO SCH (09:35)
[2017-12-05] MEDS: CHOLECALCIFEROL (VIT D3) 1000 UNIT TAB PO SCH (09:35)
[2017-12-05] MEDS: DIVALPROEX SODIUM E.R. 250 MG TAB PO SCH (09:36)
[2017-12-05] MEDS: BACLOFEN 10 MG TAB PO SCH ×2 (09:36→13:00)
[2017-12-05] MEDS: ARIPiprazole 10 MG TAB PO SCH (09:36)
[2017-12-05] MEDS: MELOXICAM 15 MG TAB PO SCH (09:36)
[2017-12-05] MEDS: GABAPENTIN 400 MG CAP PO SCH ×2 (09:36→13:00)
[2017-12-05] MEDS: FOLIC ACID 1 MG TAB PO SCH (09:36)
[2017-12-05] MEDS: BENZTROPINE MESYLATE 1 MG TAB PO SCH (09:36)
[2017-12-05] MEDS: ASPIRIN 81 MG CHEW TAB CHEW SCH (09:36)
[2017-12-05] MEDS: TAMSULOSIN HCL 0.4 MG CAP PO SCH (09:36)
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
[2017-12-05] MEDS ORDERED: TAMS5CAP PO (12:31)
[2017-12-05] MEDS ORDERED: BACL10TA PO (12:31)
[2017-12-05] MEDS ORDERED: THIA100 PO (12:31)
[2017-12-05] MEDS ORDERED: ARIP1TAB15 PO (12:31)
[2017-12-05] MEDS ORDERED: ASPI81CH7 CHEW (12:31)
[2017-12-05] MEDS ORDERED: FOLI1TAB6 PO (12:31)
[2017-12-05] MEDS ORDERED: Benztropine PO (12:31)
[2017-12-05] MEDS ORDERED: DIVA250ER PO (12:31)
[2017-12-05] MEDS ORDERED: MELO15TA20 PO (12:31)
[2017-12-05] MEDS ORDERED: GABA400C5 PO (12:31)
[2017-12-05] MEDS ORDERED: CHOL1000 PO (12:31)
[2017-12-05] MEDS ORDERED: FLUT50SP EACH NARE (12:31)
[2017-12-05] MEDS ORDERED: TERA2CAP3 PO (12:31)
[2017-12-05] MEDS ORDERED: CLON.5 PO (12:31)
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
== END 2017-12-05 13:50 | disposition home or self-care (01) | DRG 885 ==
LOC: NEDAMB 13:51 → NEDA 19:13 → H270 20:07 → H4EA 11-26 12:30 → H270 11-27 16:20
PROVIDERS: ADMIT Student in an Organized Health Care Education/Training Program; ATTEND Student in an Organized Health Care Education/Training Program
DX: F28 Other psychotic disorder not due to a substance or known physiological condition (principal); I95.9 Hypotension, unspecified; G20 Parkinson's disease; R13.12 Dysphagia, oropharyngeal phase; A08.11 Acute gastroenteropathy due to Norwalk agent; J44.9 Chronic obstructive pulmonary disease, unspecified; I10 Essential (primary) hypertension; F31.9 Bipolar disorder, unspecified; F12.10 Cannabis abuse, uncomplicated; F43.10 Post-traumatic stress disorder, unspecified; F41.9 Anxiety disorder, unspecified; F17.210 Nicotine dependence, cigarettes, uncomplicated; F43.20 Adjustment disorder, unspecified; G89.29 Other chronic pain; M19.90 Unspecified osteoarthritis, unspecified site; N40.1 Benign prostatic hyperplasia with lower urinary tract symptoms; R35.0 Frequency of micturition; S70.01XA Contusion of right hip, initial encounter; Z91.14 Patient's other noncompliance with medication regimen; Z81.8 Family history of other mental and behavioral disorders; W03.XXXA Other fall on same level due to collision with another person, initial encounter; Y92.238 Other place in hospital as the place of occurrence of the external cause
CPT/HCPCS: 73502; 74230; 80048; 80053; 80061; 80164; 80307; 82140; 82306; 82550; 82607; 83036; 83735; 84439; 84443; 84484; 85025; 87493; 87506; 93005; 95819; 99285; G0481; J2060; J3230; Q0163